=== PATIENT | female | born 1955 | race American Indian/Alaskan Native ===

== ENCOUNTER 2021-06-10 08:34 | Inpatient (IN) | payer MEDICAID ==
--- NOTE | 2021-06-10 12:41 | Emergency Department Report ---
HPI - General Chief Complaint: Medical Clearance Time Seen by Provider: 06/10/21 12:15 - HPI HPI: 65-year-old female with history of hypertension and alcohol use disorder is brought in by EMS complaining of difficulty walking due to low back pain and left hip pain. According to the EMS report, the patient was also found to be urinating and defecating on herself. The patient states that she drinks approximately 2 to 3 pints of liquor every day. She says that 1 week ago she lost her balance and fell onto her left side. She denies hitting her head or losing consciousness. However, after this fall she reports that she has had pain in her low back as well as left hip which has caused her difficulty in ambulating. She is unable to explain her incontinence. Other than the pain, she denies any associated headache, vision change, neck pain, chest pain, shortness of breath, cough, abdominal pain, nausea/vomiting, dysuria, focal weakness, sensory change, or any other complaints ED Past Medical Hx - Past Medical History Previous Medical History?: Yes Hx Hypertension: Yes Additional medical history: Alcohol use disorder ED Review of Systems ROS: Stated complaint: STATES CANT WALK Other details as noted in HPI Comment: All other systems reviewed and negative Constitutional: denies: chills, fever Eyes: denies: eye pain, vision change ENT: denies: throat pain, congestion Respiratory: denies: cough, shortness of breath Cardiovascular: denies: chest pain, palpitations Gastrointestinal: diarrhea. denies: abdominal pain, nausea, vomiting Genitourinary: denies: dysuria, frequency Musculoskeletal: back pain. denies: joint swelling Skin: denies: rash, lesions Neurological: denies: headache, weakness, numbness Hematological/Lymphatic: denies: easy bleeding Physical Exam - Physical Exam Vital Signs: Vital Signs 06/10/21 08:38 Temperature 98 F Pulse Rate 102 H Respiratory 18 Rate Blood Pressure 145/106 [Left] O2 Sat by Pulse 98 Oximetry Physical Exam: GENERAL: Well-developed female in no acute distress. Disheveled and unkempt HEAD: Normocephalic. No obvious signs of trauma. ENT: Dry mucous membranes. EYES: Extraocular movements are intact. Pupils are equal round and reactive to light bilaterally NECK: Supple. Full ROM is intact. Trachea is midline. LUNGS: Nonlabored breathing. Equal chest rise bilaterally. Clear to auscultation bilaterally. CARDIOVASCULAR: Tachycardic but with regular rhythm. No murmurs or rubs. VASCULAR: Cap refill < 2 seconds ABDOMEN: Abdomen is soft and nondistended. There is no significant tenderness, guarding or rebound. RECTAL: Nurse present as environmental field office manager. Decreased rectal tone with brown appearing stool present in the rectal vault which is Hemoccult positive SKIN: Skin is warm and dry NEURO: Patient is awake, alert, and oriented. shell trim operator II-XII grossly intact. No focal deficits. Normal motor and sensory exam throughout. Normal speech. MUSCULOSKELETAL: No obvious deformities. There is tenderness over the left lateral hip. Normal ROM throughout. BACK/SPINE: No midline tenderness or step-offs of the C/T spine. There is midline tenderness over the L-spine. No costovertebral angle tenderness. ED Course Vital Signs 06/10/21 08:38 Temperature 98 F Pulse Rate 102 H Respiratory 18 Rate Blood Pressure 145/106 [Left] O2 Sat by Pulse 98 Oximetry ED Medical Decision Making - Lab Data Result diagrams: 06/11/21 01:19 06/11/21 01:19 Lab Results 06/10/21 06/10/21 06/10/21 Range/Units 12:42 12:42 12:42 WBC 7.8 (4.5-11.0) K/mm3 RBC 2.66 L (3.65-5.03) M/mm3 Hgb 8.6 L (10.1-14.3) gm/dl Hct 26.9 L (30.3-42.9) % MCV 101 H (79-97) fl MCH 33 H (28-32) pg MCHC 32 (30-34) % RDW 18.1 H (13.2-15.2) % Plt Count 294 (140-440) K/mm3 Lymph % (Auto) 16.4 (13.4-35.0) % [place] % (Auto) 3.6 (0.0-7.3) % Eos % (Auto) 0.6 (0.0-4.3) % Baso % (Auto) 0.8 (0.0-1.8) % Lymph # (Auto) 1.3 (1.2-5.4) K/mm3 [place] # (Auto) 0.3 (0.0-0.8) K/mm3 Eos # (Auto) 0.0 (0.0-0.4) K/mm3 Baso # (Auto) 0.1 (0.0-0.1) K/mm3 Seg Neutrophils % 78.6 H (40.0-70.0) % Seg Neutrophils # 6.1 (1.8-7.7) K/mm3 PT 14.3 (12.2-14.9) Sec. INR 1.00 (0.87-1.13) APTT 36.7 H (24.2-36.6) Sec. Sodium 140 (137-145) mmol/L Potassium 2.9 L* (3.6-5.0) mmol/L Chloride 103.7 (98-107) mmol/L Carbon Dioxide 18 L (22-30) mmol/L Anion Gap 21 mmol/L BUN 15 (7-17) mg/dL Creatinine 2.2 H (0.6-1.2) mg/dL Estimated GFR 27 ml/min BUN/Creatinine Ratio 7 % Glucose 106 H (65-100) mg/dL Calcium 8.6 (8.4-10.2) mg/dL Phosphorus (2.5-4.5) mg/dL Magnesium (1.7-2.3) mg/dL Total Bilirubin (0.1-1.2) mg/dL Direct Bilirubin (0-0.2) mg/dL Indirect Bilirubin mg/dL AST (5-40) units/L ALT (7-56) units/L Alkaline Phosphatase (35-129) units/L Total Protein (6.3-8.2) g/dL Albumin (3.9-5) g/dL Albumin/Globulin Ratio % Lipase (13-60) units/L Plasma/Serum Alcohol (0-0.07) % 06/10/21 06/10/21 06/10/21 Range/Units 12:42 14:15 14:15 WBC (4.5-11.0) K/mm3 RBC (3.65-5.03) M/mm3 Hgb (10.1-14.3) gm/dl Hct (30.3-42.9) % MCV (79-97) fl MCH (28-32) pg MCHC (30-34) % RDW (13.2-15.2) % Plt Count (140-440) K/mm3 Lymph % (Auto) (13.4-35.0) % [place] % (Auto) (0.0-7.3) % Eos % (Auto) (0.0-4.3) % Baso % (Auto) (0.0-1.8) % Lymph # (Auto) (1.2-5.4) K/mm3 [place] # (Auto) (0.0-0.8) K/mm3 Eos # (Auto) (0.0-0.4) K/mm3 Baso # (Auto) (0.0-0.1) K/mm3 Seg Neutrophils % (40.0-70.0) % Seg Neutrophils # (1.8-7.7) K/mm3 PT (12.2-14.9) Sec. INR (0.87-1.13) APTT (24.2-36.6) Sec. Sodium (137-145) mmol/L Potassium (3.6-5.0) mmol/L Chloride (98-107) mmol/L Carbon Dioxide (22-30) mmol/L Anion Gap mmol/L BUN (7-17) mg/dL Creatinine (0.6-1.2) mg/dL Estimated GFR ml/min BUN/Creatinine Ratio % Glucose (65-100) mg/dL Calcium (8.4-10.2) mg/dL Phosphorus (2.5-4.5) mg/dL Magnesium 1.00 L (1.7-2.3) mg/dL Total Bilirubin (0.1-1.2) mg/dL Direct Bilirubin (0-0.2) mg/dL Indirect Bilirubin mg/dL AST (5-40) units/L ALT (7-56) units/L Alkaline Phosphatase (35-129) units/L Total Protein (6.3-8.2) g/dL Albumin (3.9-5) g/dL Albumin/Globulin Ratio % Lipase 24 (13-60) units/L Plasma/Serum Alcohol 0.17 H (0-0.07) % 06/10/21 Range/Units 15:12 WBC (4.5-11.0) K/mm3 RBC (3.65-5.03) M/mm3 Hgb (10.1-14.3) gm/dl Hct (30.3-42.9) % MCV (79-97) fl MCH (28-32) pg MCHC (30-34) % RDW (13.2-15.2) % Plt Count (140-440) K/mm3 Lymph % (Auto) (13.4-35.0) % [place] % (Auto) (0.0-7.3) % Eos % (Auto) (0.0-4.3) % Baso % (Auto) (0.0-1.8) % Lymph # (Auto) (1.2-5.4) K/mm3 [place] # (Auto) (0.0-0.8) K/mm3 Eos # (Auto) (0.0-0.4) K/mm3 Baso # (Auto) (0.0-0.1) K/mm3 Seg Neutrophils % (40.0-70.0) % Seg Neutrophils # (1.8-7.7) K/mm3 PT (12.2-14.9) Sec. INR (0.87-1.13) APTT (24.2-36.6) Sec. Sodium (137-145) mmol/L Potassium (3.6-5.0) mmol/L Chloride (98-107) mmol/L Carbon Dioxide (22-30) mmol/L Anion Gap mmol/L BUN (7-17) mg/dL Creatinine (0.6-1.2) mg/dL Estimated GFR ml/min BUN/Creatinine Ratio % Glucose (65-100) mg/dL Calcium (8.4-10.2) mg/dL Phosphorus 2.10 L (2.5-4.5) mg/dL Magnesium (1.7-2.3) mg/dL Total Bilirubin 0.50 (0.1-1.2) mg/dL Direct Bilirubin < 0.2 (0-0.2) mg/dL Indirect Bilirubin 0.3 mg/dL AST 35 (5-40) units/L ALT 13 (7-56) units/L Alkaline Phosphatase 219 H (35-129) units/L Total Protein 6.5 (6.3-8.2) g/dL Albumin 3.1 L (3.9-5) g/dL Albumin/Globulin Ratio 0.9 % Lipase (13-60) units/L Plasma/Serum Alcohol (0-0.07) % - Radiology Data Radiology results: report reviewed - Medical Decision Making 65-year-old female with chronic alcohol use brought in by EMS after she was found defecating and urinating on herself with complaint of low back pain and left hip pain. Patient states she had a trip and fall last week. She is afebrile and with normal vital signs other than elevated blood pressure and heart rate in the 100s. Physical examination reveals a disheveled female with dry mucous membranes. There is tenderness over the left hip. There is also mid spinal tenderness in the lumbar spine. However, there is normal strength and sensation throughout and no focal neurologic deficits. Rectal exam was performed with nurse present as environmental field office manager and reveals decreased rectal tone. We will perform very broad work-up with a full set of labs as well as plain film x-rays of the pelvis and left hip as well as CT of the lumbar spine to assess for evidence of fracture/dislocation, or other abnormality to suggest spinal cord injury or cauda equina syndrome. Will give banana bag Labs reveal several abnormalities including anemia with hemoglobin of 8.6, creatinine of 2.2, and potassium of 2.9. I have ordered potassium repletion. I have also ordered a magnesium level and EKG. I went and spoke to the patient who reveals that she has had dark tarry stools for the past week. Stool from rectal exam is Hemoccult positive. I have therefore ordered 80 mg of IV Protonix Magnesium level is found to be 1.0. I have ordered repletion. Chest x-ray reveals diffuse interstitial lung disease, likely chronic. On repeat assessment, patient has become more agitated and anxious. I suspect that the patient is beginning to have symptoms of alcohol withdrawal. CIWA protocol has been ordered. CT of the lumbar spine reveals several findings related to patient's prior surgery for L1 burst fracture. No acute abnormalities are seen however. At 5:19 PM I spoke with Dr. Cuong Davis of neurosurgery regarding the patient's case. He reviewed the CT and agrees there is nothing acute CT of the abdomen pelvis reveals fragmentation of the left pubic ramus which may represent subacute fracture as well as insufficiency fractures involving both iliac bones. At [address] Mendoza, the on-call hospitalist regarding the case and he agrees to admit the patient and will assume care. Critical Care Time: Yes Critical care time in (mins) excluding proc time.: 60 Critical care attestation.: If time is entered above; I have spent that time in minutes in the direct care of this critically ill patient, excluding procedure time. Critical care time was spent in the evaluation/assessment, work-up, and management of encephalopathy with alcohol intoxication, GI bleed with anemia, kidney dysfunction with hypokalemia requiring oral and IV repletion, alcohol withdrawal requiring initiation of CIWA protocol, as well as advanced imaging and consultation with specialist and frequent reevaluation and reassessment ED Disposition Clinical Impression: GI bleed, Anemia, Hypokalemia, Hypomagnesemia, Alcohol dependence, Sciatica, NELLY (acute kidney injury), Hypophosphatemia Fracture of left inferior pubic ramus Qualifiers: Encounter type: initial encounter Alcohol withdrawal Qualifiers: Complication of substance-induced condition: with delirium Qualified Code(s): F10.231 - Alcohol dependence with withdrawal delirium Low back pain Qualifiers: Chronicity: chronic Sciatica presence: without sciatica Disposition: 09 ADMITTED INPATIENT Is pt being admited?: Yes
[2021-06-10] MEDS ORDERED: THIAMINE 100 MG, FOLIC ACID 1 MG, MULTIPLE VITAMIN INJ, ADULT 10 ML in SODIUM CHLORIDE ... IV ONE (13:00)
[2021-06-10 13:22] LABS: Basophils # (Auto) 0.1 K/mm3 (0.0-0.1); Basophils % (Auto) 0.8 % (0.0-1.8); Eosinophils % (Auto) 0.6 % (0.0-4.3); Hematocrit 26.9 % (30.3-42.9); Hemoglobin 8.6 gm/dl (10.1-14.3); Lymphocytes # (Auto) 1.3 K/mm3 (1.2-5.4); Lymphocytes % (Auto) 16.4 % (13.4-35.0); Mean Corpuscular HGB Conc 32 % (30-34); Mean Corpuscular Volume 101 fl (79-97); Monocytes # (Auto) 0.3 K/mm3 (0.0-0.8); Monocytes % (Auto) 3.6 % (0.0-7.3); Platelet Count 294 K/mm3 (140-440); Red Blood Count 2.66 M/mm3 (3.65-5.03); Red Cell Distribution Width 18.1 % (13.2-15.2)
--- NOTE | 2021-06-10 13:29 | XRay Report ---
LEFT HIP 2 VIEWS INDICATION / CLINICAL INFORMATION: Fall with left hip pain. COMPARISON: None available. FINDINGS: BONES / JOINT(S): The bones are diffusely demineralized. I see no evidence of acute fracture or sublu xation. There are surgical changes in the lower lumbar spine. SOFT TISSUES: No significant abnormality. ADDITIONAL FINDINGS: None. Signer Name: Manny Lange MD Signed: 06/10/2021 1:25 PM Workstation Name: [id number]
[2021-06-10 13:31] LABS: Partial Thromboplastin Time 36.7 Sec. (24.2-36.6)
[2021-06-10 13:39] LABS: Calcium 8.6 mg/dL (8.4-10.2)
[2021-06-10] MEDS ORDERED: POTASSIUM CHLORIDE ER 20 MEQ TAB PO ONE (14:04)
[2021-06-10] MEDS ORDERED: PANTOPRAZOLE 40 MG INJ IV ONE (14:56)
[2021-06-10] MEDS ORDERED: MAGNESIUM SULFATE 2 GM/50 ML BAG IV ONE (15:37)
[2021-06-10] MEDS ORDERED: LORazepam 2 MG/ML VIAL IV ONE (15:48)
[2021-06-10 16:13] LABS: Alanine Aminotransferase 13 units/L (7-56); Albumin 3.1 g/dL (3.9-5)
[2021-06-10 16:17] LABS: Bilirubin,Direct < 0.2 mg/dL (0-0.2)
--- NOTE | 2021-06-10 16:27 | XRay Report ---
CHEST 2 VIEWS INDICATION / CLINICAL INFORMATION: Medical clearance. COMPARISON: None available. FINDINGS: SUPPORT DEVICES: None. HEART / MEDIASTINUM: The heart size is borderline with a left ventricular configuration. Pulmonary va sculature is normal. The aorta is tortuous without aneurysm. LUNGS / PLEURA: There is mild diffuse interstitial lung disease, more prominent in the lower lung zon es. No pneumothorax. ADDITIONAL FINDINGS: There are surgical changes involving the thoracolumbar spine and lower cervical spine. IMPRESSION: Mild diffuse interstitial lung disease is basilar predominant and likely chronic. Signer Name: Manny Lange MD Signed: 06/10/2021 4:22 PM Workstation Name: [id number]
--- NOTE | 2021-06-10 16:56 | Cat Scan Report ---
CT LUMBAR SPINE WITHOUT CONTRAST INDICATION: mid-line tenderness and incontinence. TECHNIQUE: Axial CT images of the lumbar spine were obtained. Sagittal and coronal reformatted images were produ talha. All CT scans at this location are performed using CT dose reduction for ALARA by means of automa zulma exposure control. COMPARISON: None available. FINDINGS: POST-SURGICAL CHANGES: Patient is status post surgical treatment for L1 vertebral body burst fracture . Vertebrectomy has been performed. Interbody strut graft is present. There has been posterior latera l fusion bone placed without evidence of solid bone union at the time of this study. Patient is statu s post segmental instrumentation at T11, T12, L2 and L3 levels. Patient is status post laminectomy at L1. Spinal canal is adequate in size in the postoperative region. ALIGNMENT: Grade 1 spondylolisthesis is noted at the L5-S1 level. Alignment is otherwise fairly well- maintained. VERTEBRAE: Evidence of surgically treated burst fracture at L1. Compression deformity at superior end plate T11. Vertebral morphology is otherwise fairly well-maintained. INTERVERTEBRAL DISCS: Loss of disc height and disc vacuum phenomena are noted at T10-T11 and L5-S1 le vels. The T12-L1 and L1-L2 discs are largely surgically absent. [id number] ANALYSIS: T11-T12: Disc height is normally maintained. Patient is status post segmental instrumentation support ing fracture treatment. Pedicle screws are in satisfactory position. T12-L1: The intervertebral disc at this surgically absent. Interbody strut graft is in satisfactory p osition. There is retropulsion of posterior cortex at the L1 superior endplate. Laminectomy spine per formed at this level and there is no indication of central canal stenosis. L1-2: Postoperative changes. Status post laminectomy at L1. Central spinal canal and neuroforamina ar e adequately maintained. L2-3: No specific herniation. Treatment. Pedicle screws are in satisfactory position. A radiolucent h alos surrounds the L3 pedicle screws bilaterally indicating loosening. Central spinal canal and neuro foramina are generous in size. L3-4: No significant disc abnormality, spinal canal stenosis, or neural foraminal stenosis. L4-5: Bilateral facet arthropathy is noted. There is thickening of ligamentum flavum. Broad-based dis c bulge is observed. Mild central canal stenosis is suspected at this level. The L4 nerve root neurof oramina are adequately maintained. L5-S1: Loss of disc height and disc vacuum phenomena are noted. Bilateral facet arthritic changes are observed. There is a mild grade 1 spondylolisthesis. Central spinal canal remains adequate in size. Mild left-sided and moderate right-sided neuroforaminal narrowing is observed the L5 nerve root level . Sacrum: No intrinsic sacral abnormalities are identified. Sacroiliac joints have an unremarkable appe arance. PARASPINAL SOFT TISSUES: Calcified atherosclerotic plaque is seen along the course of the abdominal a tegan and in the common iliac arteries. IMPRESSION: 1. Status post surgical treatment for L1 burst fracture as described in detail above. 2. Radiolucent halos surrounding the L3 vertebral body screws indicating loosening 3. Mild central canal stenosis L4-5. 4. Right worse than left neuroforaminal narrowing L5-S1. Signer Name: Ambrose Pierce MD Signed: 06/10/2021 4:52 PM Workstation Name: [id number]
--- NOTE | 2021-06-10 17:05 | Cat Scan Report ---
CT OF THE ABDOMEN AND PELVIS WITHOUT CONTRAST INDICATION / CLINICAL INFORMATION: Abdominal pain. TECHNIQUE: All CT scans at this location are performed using CT dose reduction for ALARA by means of automated exposure control. COMPARISON: None available. FINDINGS: ABDOMEN: There is a moderate midline epigastric fat-containing ventral hernia. The hernia sac measure s approximately 4.3 cm. The mouth of the hernia measures 1.3 cm. There is slight increased density of the fat in the hernia sac. The liver, spleen, gallbladder, bile ducts, pancreas, adrenal glands and bowel demonstrate no signifi cant abnormality. There are moderate atherosclerotic calcifications involving aorta. There are right renal vascular calcifications. There is a 2 mm nonobstructive calculus in the upper pole left kidney. No adenopathy is seen. The lung bases are clear. PELVIS: The distal ureters and urinary bladder are normal. The uterus and ovaries are not identified. There is no evidence of diverticulitis or appendicitis. There is a tiny fat-containing left inguinal hernia without complication. There are surgical changes involving the thoracolumbar spine transfixing an old compression fracture at the L1 level. There is fragmentation of the left pubic body with mild associated soft tissue fulln ess. There also appear to be insufficiency fractures involving both iliac wings anteriorly adjacent t o the SI joints IMPRESSION: 1. Small midline fat-containing epigastric ventral hernia. Slight increased density of the fat in the hernia sac may be related to acute or chronic inflammation. 2. Small nonobstructive left renal calculus. 3. Fragmentation of the left pubic ramus may be related to subacute fracture. Clinical attention is d irected to this site. There are insufficiency fractures involving both iliac bones near the SI joints . Signer Name: Manny Lange MD Signed: 06/10/2021 5:00 PM Workstation Name: [id number]
--- NOTE | 2021-06-11 00:21 | History and Physical Report ---
History of Present Illness Date of examination: 06/10/21 Date of admission: 06/10/21 17:26 Chief complaint: Altered sensorium for 1 day Left knee pain and left pelvic pain History of present illness: 65-year-old female with history of hypertension and alcohol use disorder is brought in by EMS complaining of difficulty walking due to low back pain and left hip pain. According to the EMS report, the patient was also found to be urinating and defecating on herself. The patient states that she drinks approximately 2 to 3 pints of liquor every day. She says that 1 week ago she lost her balance and fell onto her left side. She denies hitting her head or losing consciousness. However, after this fall she reports that she has had pain in her low back as well as left hip which has caused her difficulty in ambulating. She is unable to explain her incontinence. Other than the pain, she denies any associated headache, vision change, neck pain, chest pain, shortness of breath, cough, abdominal pain, nausea/vomiting, dysuria, focal weakness, sensory change, or any other complaints - Past Medical History Previous Medical History?: Yes --Hypertension: Yes Additional medical history: Alcohol use disorder --Past surgical history lumbar spine surgery --social history --alcohol dependence -- family history -- hypertension Review of Systems ROS: Constitutional no weight loss or weight gain no fever or chills HEENT no sore throat no post nasal drip no diplopia Neck no neck stiffness no lymph gland enlargement Chest and lungs no shortness of breath cough or wheezing CVS no chest pain no diaphoresis no palpitationGI no nausea no vomiting no diarrhGenitourinary system no dysuria no flank pain Musculoskeletal system left hip pain and pelvic pain PIG [employer]ER altered sensorium Skin no rash no itching Psychiatric no depression no homicidal or suicidal tendencies Hematologic no lymphedema or bruising Endocrine no polydipsia no polyuria no cold intolerance no heat intolerance Medications and Allergies Allergies Allergy/AdvReac Type Severity Reaction Status Date / Time No Known Allergies Allergy Verified 06/11/21 01:40 Active Meds: Active Medications Lorazepam (Lorazepam 2 Mg/Ml Vial) 2 mg IV Q1HR PRN PRN Reason: [facility]-Ct 815 Exam - Constitutional Vitals: Temp Pulse Resp BP Pulse Ox 98.9 F 108 H 20 160/107 95 06/10/21 20:17 06/10/21 20:17 06/10/21 20:17 06/10/21 20:17 06/10/21 20:17 General appearance: Present: no acute distress, well-nourished - EENT Eyes: Present: PERRL ENT: hearing intact, clear oral mucosa - Neck Neck: Present: supple, normal ROM - Respiratory Respiratory effort: normal Respiratory: bilateral: CTA - Cardiovascular Heart rate: 78 Rhythm: regular Heart Sounds: Present: S1 & S2. Absent: rub, click - Extremities Extremities: no ischemia, pulses intact, pulses symmetrical, No edema Peripheral Pulses: within normal limits - Abdominal General gastrointestinal: Present: soft, non-tender, non-distended, normal bowel sounds Female genitourinary: Present: normal - Integumentary Integumentary: Present: clear, warm, dry - Musculoskeletal Musculoskeletal: gait normal, strength equal bilaterally - Psychiatric Psychiatric: appropriate mood/affect, intact judgment & insight - Neurologic Neurologic: CNII-XII intact, moves all extremities Results - Labs CBC & Chem 7: 06/11/21 01:19 06/11/21 01:19 Labs: Laboratory Last Values WBC 7.8 K/mm3 (4.5-11.0) 06/10/21 12:42 RBC 2.66 M/mm3 (3.65-5.03) L 06/10/21 12:42 Hgb 8.6 gm/dl (10.1-14.3) L 06/10/21 12:42 Hct 26.9 % (30.3-42.9) L 06/10/21 12:42 MCV 101 fl (79-97) H 06/10/21 12:42 MCH 33 pg (28-32) H 06/10/21 12:42 MCHC 32 % (30-34) 06/10/21 12:42 RDW 18.1 % (13.2-15.2) H 06/10/21 12:42 Plt Count 294 K/mm3 (140-440) 06/10/21 12:42 Lymph % (Auto) 16.4 % (13.4-35.0) 06/10/21 12:42 [place] % (Auto) 3.6 % (0.0-7.3) 06/10/21 12:42 Eos % (Auto) 0.6 % (0.0-4.3) 06/10/21 12:42 Baso % (Auto) 0.8 % (0.0-1.8) 06/10/21 12:42 Lymph # (Auto) 1.3 K/mm3 (1.2-5.4) 06/10/21 12:42 [place] # (Auto) 0.3 K/mm3 (0.0-0.8) 06/10/21 12:42 Eos # (Auto) 0.0 K/mm3 (0.0-0.4) 06/10/21 12:42 Baso # (Auto) 0.1 K/mm3 (0.0-0.1) 06/10/21 12:42 Seg Neutrophils % 78.6 % (40.0-70.0) H 06/10/21 12:42 Seg Neutrophils # 6.1 K/mm3 (1.8-7.7) 06/10/21 12:42 PT 14.3 Sec. (12.2-14.9) 06/10/21 12:42 INR 1.00 (0.87-1.13) 06/10/21 12:42 APTT 36.7 Sec. (24.2-36.6) H 06/10/21 12:42 Sodium 140 mmol/L (137-145) 06/10/21 12:42 Potassium 2.9 mmol/L (3.6-5.0) L* 06/10/21 12:42 Chloride 103.7 mmol/L (98-107) 06/10/21 12:42 Carbon Dioxide 18 mmol/L (22-30) L 06/10/21 12:42 Anion Gap 21 mmol/L 06/10/21 12:42 BUN 15 mg/dL (7-17) 06/10/21 12:42 Creatinine 2.2 mg/dL (0.6-1.2) H 06/10/21 12:42 Estimated GFR 27 ml/min 06/10/21 12:42 BUN/Creatinine Ratio 7 % 06/10/21 12:42 Glucose 106 mg/dL (65-100) H 06/10/21 12:42 Calcium 8.6 mg/dL (8.4-10.2) 06/10/21 12:42 Phosphorus 2.10 mg/dL (2.5-4.5) L 06/10/21 15:12 Magnesium 1.00 mg/dL (1.7-2.3) L 06/10/21 14:15 Total Bilirubin 0.50 mg/dL (0.1-1.2) 06/10/21 15:12 Direct Bilirubin < 0.2 mg/dL (0-0.2) 06/10/21 15:12 Indirect Bilirubin 0.3 mg/dL 06/10/21 15:12 AST 35 units/L (5-40) 06/10/21 15:12 ALT 13 units/L (7-56) 06/10/21 15:12 Alkaline Phosphatase 219 units/L (35-129) H 06/10/21 15:12 Total Protein 6.5 g/dL (6.3-8.2) 06/10/21 15:12 Albumin 3.1 g/dL (3.9-5) L 06/10/21 15:12 Albumin/Globulin Ratio 0.9 % 06/10/21 15:12 Lipase 24 units/L (13-60) 06/10/21 12:42 Plasma/Serum Alcohol 0.17 % (0-0.07) H 06/10/21 14:15 Microbiology: Microbiology 06/10/21 14:51 Stool Stool Occult Blood (SEEMA) - Final Assessment and Plan Advance Directives: Yes (Full code) VTE prophylaxis?: Chemical Plan of care discussed with patient/family: Yes - Patient Problems (1) Acute encephalopathy Current Visit: Yes Status: Acute Plan to address problem: Secondary to EtOH IV fluids IV thiamine and B12 (2) Alcohol withdrawal Current Visit: Yes Status: Acute Qualifiers: Complication of substance-induced condition: with delirium Qualified Code(s): F10.231 - Alcohol dependence with withdrawal delirium Plan to address problem: On CIWA protocol (3) Fracture of left inferior pubic ramus Current Visit: Yes Status: Acute Qualifiers: Encounter type: initial encounter Plan to address problem: Possible subacute Ortho consulted (4) Hypokalemia Current Visit: Yes Status: Acute Plan to address problem: Supplemented aggressively Recheck potassium level (5) NELLY (acute kidney injury) Current Visit: Yes Status: Acute Plan to address problem: IV fluids for now Vasomotor nephropathy Dehydration secondary to alcohol intake (6) Hypomagnesemia Current Visit: Yes Status: Acute Plan to address problem: Supplemented (7) Hypophosphatemia Current Visit: Yes Status: Acute Plan to address problem: Supplemented with K-Phos (8) Acute gastritis Current Visit: Yes Status: Chronic Qualifiers: Gastritis type: alcoholic Plan to address problem: IV Protonix for now (9) Low back pain Current Visit: Yes Status: Chronic Qualifiers: Chronicity: chronic Sciatica presence: without sciatica Plan to address problem: Analgesics as needed (10) Advance care planning Current Visit: Yes Status: Acute Plan to address problem: Disease education conducted, care plan discussed, diagnosis discussed, patient is full code, patient acknowledges understanding and agrees with care plan +30 minutes (11) DVT prophylaxis Current Visit: Yes Status: Acute Plan to address problem: On anticoagulation GI prophylaxis
[2021-06-11] MEDS ORDERED: METOCLOPRAMIDE 10 MG/2 ML INJ IV PRN (00:24)
[2021-06-11] MEDS ORDERED: ONDANSETRON 4 MG/2 ML INJ IV PRN (00:24)
[2021-06-11] MEDS ORDERED: ACETAMINOPHEN 325 MG TAB PO PRN (00:24)
[2021-06-11] MEDS ORDERED: MAGNESIUM SULFATE 2 GM/50 ML BAG IV ONE ×2 (00:27→04:15)
[2021-06-11] MEDS ORDERED: SODIUM CHLORIDE 0.9% 1000 ML 1,000 ML IV SCH (00:30)
[2021-06-11] MEDS ORDERED: POTASSIUM CHLORIDE 10 MEQ 10 MEQ/100 ML BAG IV SCH (01:00)
[2021-06-11] MEDS ORDERED: FAMOTIDINE 20 MG/2 ML INJ IV SCH ×2 (01:00→11:00)
[2021-06-11 01:43] LABS: Basophils % (Auto) 0.2 % (0.0-1.8); Eosinophils % (Auto) 0.2 % (0.0-4.3); Hematocrit 24.8 % (30.3-42.9); Hemoglobin 8.1 gm/dl (10.1-14.3); Lymphocytes # (Auto) 1.4 K/mm3 (1.2-5.4); Lymphocytes % (Auto) 20.3 % (13.4-35.0); Mean Corpuscular HGB Conc 33 % (30-34); Mean Corpuscular Volume 103 fl (79-97); Monocytes # (Auto) 0.4 K/mm3 (0.0-0.8); Platelet Count 245 K/mm3 (140-440); Red Blood Count 2.41 M/mm3 (3.65-5.03); Red Cell Distribution Width 17.5 % (13.2-15.2)
[2021-06-11 01:51] LABS: Albumin 3.3 g/dL (3.9-5); Calcium 8.6 mg/dL (8.4-10.2)
[2021-06-11] MEDS: LORazepam 2 MG/ML VIAL IV PRN ×5 (03:29→18:54)
[2021-06-11] MEDS: POTASSIUM CHLORIDE 10 MEQ 10 MEQ/100 ML BAG IV SCH ×4 (04:56→14:14)
[2021-06-11] MEDS ORDERED: POTASSIUM CHLORIDE ER 20 MEQ TAB PO ONE (10:00)
[2021-06-11] MEDS ORDERED: MAGNESIUM SULFATE 3 GM in SODIUM CHLORIDE 0.9% 100 ML IV ONE (10:00)
[2021-06-11] MEDS ORDERED: POTASSIUM PHOSPHATE 40 MMOL in SODIUM CHLORIDE 0.9% 500 ML 500 ML IV ONE (10:00)
[2021-06-11] MEDS: HEPARIN 5,000 UNIT/1 ML VIAL SUB-Q SCH ×2 (11:00→21:54)
[2021-06-11] MEDS: oxyCODONE /ACETAMINOPHEN 5-325MG TAB PO PRN (11:30)
--- NOTE | 2021-06-11 13:20 | Progress Note ---
Assessment and Plan Assessment and plan: Altered sensorium for 1 day Left knee pain and left pelvic pain 65-year-old female with history of hypertension and alcohol use disorder is brought in by EMS complaining of difficulty walking due to low back pain and left hip pain. According to the EMS report, the patient was also found to be urinating and defecating on herself. The patient states that she drinks approximately 2 to 3 pints of liquor every day. She says that 1 week ago she lost her balance and fell onto her left side. She denies hitting her head or losing consciousness. However, after this fall she reports that she has had bruna n in her low back as well as left hip which has caused her difficulty in ambulating. She is unable to explain her incontinence. Other than the pain, she denies any associated headache, vision change, neck pain, chest pain, shortness of breath, cough, abdominal pain, nausea/vomiting, dysuria, focal weakness, sensory change, or any other complaints 06/11: Patient remains on with AMS, and tremulous, undergoing withdrawal. Will continue with aggressive electrolytes Replacement. Counselling provided to the patient about need to cease tobacco and etoh use. Anticipate discharge tomorrow. Will also add Psych consult FOR Patients professed Depression. (1) Acute Metabolic encephalopathy Current Visit: Yes Status: Acute Plan to address problem: Secondary to EtOH IV fluids IV thiamine and B12 (2) Alcohol withdrawal Current Visit: Yes Status: Acute Qualifiers: Complication of substance-induced condition: with delirium Qualified Code(s): F10.231 - Alcohol dependence with withdrawal delirium Plan to address problem: On CIWA protocol (3) Fracture of left inferior pubic ramus Current Visit: Yes Status: Acute Qualifiers: Encounter type: initial encounter Plan to address problem: Possible subacute Ortho consulted (4) Hypokalemia Current Visit: Yes Status: Acute Plan to address problem: Supplemented aggressively Recheck potassium level (5) NELLY (acute kidney injury) Current Visit: Yes Status: Acute Plan to address problem: IV fluids for now Vasomotor nephropathy Dehydration secondary to alcohol intake (6) Hypomagnesemia Current Visit: Yes Status: Acute Plan to address problem: Supplemented (7) Hypophosphatemia Current Visit: Yes Status: Acute Plan to address problem: Supplemented with K-Phos (8) Acute gastritis Current Visit: Yes Status: Chronic Qualifiers: Gastritis type: alcoholic Plan to address problem: IV Protonix for now (9) Low back pain Current Visit: Yes Status: Chronic Qualifiers: Chronicity: chronic Sciatica presence: without sciatica Plan to address problem: Analgesics as needed (10) Advance care planning Current Visit: Yes Status: Acute Plan to address problem: Disease education conducted, care plan discussed, diagnosis discussed, patient is full code, patient acknowledges understanding and agrees with care plan +30 minutes (11) DVT prophylaxis Current Visit: Yes Status: Acute Plan to address problem: On anticoagulation GI prophylaxis Hospitalist Physical - Physical exam Narrative exam: General appearance: Present: no acute distress, well-nourished, Tremulous - EENT Eyes: Present: PERRL ENT: hearing intact, clear oral mucosa - Neck Neck: Present: supple, normal ROM - Respiratory Respiratory effort: normal Respiratory: bilateral: CTA - Cardiovascular Heart rate: 78 Rhythm: regular Heart Sounds: Present: S1 & S2. Absent: rub, click - Extremities Extremities: no ischemia, pulses intact, pulses symmetrical, No edema Peripheral Pulses: within normal limits - Abdominal General gastrointestinal: Present: soft, non-tender, non-distended, normal bowel sounds Female genitourinary: Present: normal - Integumentary Integumentary: Present: clear, warm, dry - Musculoskeletal Musculoskeletal: gait normal, strength equal bilaterally - Psychiatric Psychiatric: appropriate mood/affect, intact judgment & insight - Neurologic Neurologic: CNII-XII intact, moves all extremities - Constitutional Vitals: Temp Pulse Resp BP Pulse Ox 98.7 F 107 H 18 170/88 98 06/11/21 08:36 06/11/21 08:36 06/11/21 08:36 06/11/21 08:36 06/11/21 09:03 General appearance: Present: no acute distress, well-nourished Results - Labs CBC & Chem 7: 06/11/21 01:19 06/11/21 01:19 Labs: Laboratory Last Values WBC 7.1 K/mm3 (4.5-11.0) 06/11/21 01:19 RBC 2.41 M/mm3 (3.65-5.03) L 06/11/21 01:19 Hgb 8.1 gm/dl (10.1-14.3) L 06/11/21 01:19 Hct 24.8 % (30.3-42.9) L 06/11/21 01:19 MCV 103 fl (79-97) H 06/11/21 01:19 MCH 34 pg (28-32) H 06/11/21 01:19 MCHC 33 % (30-34) 06/11/21 01:19 RDW 17.5 % (13.2-15.2) H 06/11/21 01:19 Plt Count 245 K/mm3 (140-440) 06/11/21 01:19 Lymph % (Auto) 20.3 % (13.4-35.0) 06/11/21 01:19 [place] % (Auto) 6.0 % (0.0-7.3) 06/11/21 01:19 Eos % (Auto) 0.2 % (0.0-4.3) 06/11/21 01:19 Baso % (Auto) 0.2 % (0.0-1.8) 06/11/21 01:19 Lymph # (Auto) 1.4 K/mm3 (1.2-5.4) 06/11/21 01:19 [place] # (Auto) 0.4 K/mm3 (0.0-0.8) 06/11/21 01:19 Eos # (Auto) 0.0 K/mm3 (0.0-0.4) 06/11/21 01:19 Baso # (Auto) 0.0 K/mm3 (0.0-0.1) 06/11/21 01:19 Seg Neutrophils % 73.3 % (40.0-70.0) H 06/11/21 01:19 Seg Neutrophils # 5.2 K/mm3 (1.8-7.7) 06/11/21 01:19 PT 14.3 Sec. (12.2-14.9) 06/10/21 12:42 INR 1.00 (0.87-1.13) 06/10/21 12:42 APTT 36.7 Sec. (24.2-36.6) H 06/10/21 12:42 Sodium 138 mmol/L (137-145) 06/11/21 01:19 Potassium 3.2 mmol/L (3.6-5.0) L 06/11/21 01:19 Chloride 102.2 mmol/L (98-107) 06/11/21 01:19 Carbon Dioxide 20 mmol/L (22-30) L 06/11/21 01:19 Anion Gap 19 mmol/L 06/11/21 01:19 BUN 16 mg/dL (7-17) 06/11/21 01:19 Creatinine 2.0 mg/dL (0.6-1.2) H 06/11/21 01:19 Estimated GFR 30 ml/min 06/11/21 01:19 BUN/Creatinine Ratio 8 % 06/11/21 01:19 Glucose 86 mg/dL (65-100) 06/11/21 01:19 Hemoglobin A1c 4.2 % (4-6) 06/11/21 01:19 Calcium 8.6 mg/dL (8.4-10.2) 06/11/21 01:19 Phosphorus 3.00 mg/dL (2.5-4.5) D 06/11/21 01:19 Magnesium 0.80 mg/dL (1.7-2.3) L* 06/11/21 01:19 Total Bilirubin 0.90 mg/dL (0.1-1.2) 06/11/21 01:19 Direct Bilirubin < 0.2 mg/dL (0-0.2) 06/10/21 15:12 Indirect Bilirubin 0.3 mg/dL 06/10/21 15:12 AST 32 units/L (5-40) 06/11/21 01:19 ALT 12 units/L (7-56) 06/11/21 01:19 Alkaline Phosphatase 214 units/L (35-129) H 06/11/21 01:19 Ammonia 32.0 umol/L (25-60) 06/11/21 01:19 Total Protein 6.6 g/dL (6.3-8.2) 06/11/21 01:19 Albumin 3.3 g/dL (3.9-5) L 06/11/21 01:19 Albumin/Globulin Ratio 1.0 % 06/11/21 01:19 Amylase 94 units/L (27-131) 06/11/21 01:19 Lipase 24 units/L (13-60) 06/10/21 12:42 Plasma/Serum Alcohol 0.17 % (0-0.07) H 06/10/21 14:15 Microbiology: Microbiology 06/10/21 14:51 Stool Stool Occult Blood (SEEMA) - Final Gallagher/IV: Voiding Method Toilet Active Medications - Current Medications Current Medications: Generic Name Dose Route Start Last Admin Trade Name Freq PRN Reason Stop Dose Admin Acetaminophen 650 mg 06/11/21 00:24 Acetaminophen 325 Mg Tab PO Q4H PRN Pain MILD(1-3)/Fever >100.5/MOSCOSO Famotidine 10 mg 06/11/21 11:00 Famotidine 20 Mg/2 Ml Inj IV BID [facility] Heparin Sodium (Porcine) 5,000 unit 06/11/21 00:30 Heparin 5,000 Unit/1 Ml Vial SUB-Q Q12HR JUAN DAVID Hydromorphone HCl 0.5 mg 06/11/21 00:24 Hydromorphone 1 Mg/1 Ml Inj IV Q3H PRN Pain , Severe (7-10) Sodium Chloride 1,000 mls @ 75 mls/hr 06/11/21 00:30 06/11/21 04:40 Nacl 0.9% 1000 Ml IV 75 mls/hr DIRECT JUAN DAVID Administration Potassium Phosphate 40 mmol/ 513.3333 mls @ 83 mls/hr 06/11/21 10:00 Sodium Chloride IV 06/11/21 16:11 ONCE ONE Potassium Chloride 10 meq in 100 mls @ 100 mls/hr 06/11/21 11:00 06/11/21 11:26 Kcl 10meq/100ml IV 06/11/21 14:59 100 mls/hr Q1H JUAN DAVID Administration Lorazepam 2 mg 06/10/21 15:03 06/11/21 11:10 Lorazepam 2 Mg/Ml Vial IV 2 mg Q1HR PRN Administration Cody 8-15 Metoclopramide HCl 5 mg 06/11/21 00:24 Metoclopramide 10 Mg/2 Ml Inj IV Q6H PRN Nausea And Vomiting Metoprolol Tartrate 25 mg 06/11/21 22:00 Metoprolol Tartrate 25 Mg Tab PO BID [facility] Ondansetron HCl 4 mg 06/11/21 00:24 06/11/21 03:29 Ondansetron 4 Mg/2 Ml Inj IV 4 mg Q8H PRN Administration Nausea And Vomiting Oxycodone/Acetaminophen 1 tab 06/11/21 00:24 06/11/21 11:30 Oxycodone /Acetaminophen 5-325mg Tab PO 1 tab Q6H PRN Administration Pain, Moderate (4-6) Sodium Chloride 10 ml 06/11/21 10:00 Sodium Chloride 0.9% 10 Ml Flush Syringe IV BID JUAN DAVID Sodium Chloride 10 ml 06/11/21 00:24 Sodium Chloride 0.9% 10 Ml Flush Syringe IV PRN PRN LINE FLUSH
[2021-06-11] MEDS: HYDROmorphone 1 MG/1 ML INJ IV PRN (14:11)
[2021-06-11] MEDS: METOPROLOL TARTRATE 25 MG TAB PO SCH ×2 (14:13→21:54)
[2021-06-11] MEDS: FAMOTIDINE 20 MG/2 ML INJ IV SCH ×2 (14:23→21:53)
--- NOTE | 2021-06-11 15:59 | Consultation ---
History of Present Illness - Reason for Consult Consult date: 06/11/21 acute renal failure Requesting physician: COREY PETERSEN - History of Present Illness 65-year-old lady with a history of hypertension alcohol abuse presents on account of left low back and hip pain. Patient was found by EMS to be urinating and defecating on herself. She drinks about 3 pints of liquor a day. She fell a week ago and had pain in her left side. There was no head injury or loss of consciousness. Since then she has had low back pain and difficulty ambulating. On presentation BUN/creatinine found to be elevated at 16/2.0 mg/dL with potassium low at 3.2 mmol/L and phosphorus low at 1.7 mmol/L. I am consulted to assist with managing these problems. Patient is a poor historian. She is asking for medication for pain but then goes right back to sleep. History is thus obtained from a review of the records. Past History Past Medical History: hypertension, other (Alcohol abuse) Past Surgical History: No surgical history Social history: alcohol abuse. denies: smoking Family history: other (Unable to obtain) Medications and Allergies Allergies Allergy/AdvReac Type Severity Reaction Status Date / Time No Known Allergies Allergy Verified 06/11/21 01:40 Active Meds: Active Medications Acetaminophen (Acetaminophen 325 Mg Tab) 650 mg PO Q4H PRN PRN Reason: Pain MILD(1-3)/Fever >100.5/MOSCOSO Diphenhydramine HCl (Diphenhydramine 50 Mg/Ml Vial) 25 mg IV ONCE ONE Stop: 06/11/21 16:01 Diphenhydramine HCl (Diphenhydramine 50 Mg/Ml Vial) 25 mg IV ONCE NR Stop: 06/11/21 22:00 Famotidine (Famotidine 20 Mg/2 Ml Inj) 10 mg IV BID JUAN DAVID Last Admin: 06/11/21 14:23 Dose: 10 mg Heparin Sodium (Porcine) (Heparin 5,000 Unit/1 Ml Vial) 5,000 unit SUB-Q Q12HR JUAN DAVID Hydromorphone HCl (Hydromorphone 1 Mg/1 Ml Inj) 0.5 mg IV Q3H PRN PRN Reason: Pain , Severe (7-10) Last Admin: 06/11/21 14:11 Dose: 0.5 mg Sodium Chloride (Nacl 0.9% 1000 Ml) 1,000 mls @ 75 mls/hr IV DIRECT [facility] Last Admin: 06/11/21 04:40 Dose: 75 mls/hr Potassium Phosphate 40 mmol/ (Sodium Chloride) 513.3333 mls @ 83 mls/hr IV ONCE ONE Stop: 06/11/21 16:11 Lorazepam (Lorazepam 2 Mg/Ml Vial) 2 mg IV Q1HR PRN PRN Reason: CIWA-Ar 8-15 Last Admin: 06/11/21 14:43 Dose: 2 mg Metoclopramide HCl (Metoclopramide 10 Mg/2 Ml Inj) 5 mg IV Q6H PRN PRN Reason: Nausea And Vomiting Metoprolol Tartrate (Metoprolol Tartrate 25 Mg Tab) 25 mg PO BID [facility] Last Admin: 06/11/21 14:13 Dose: 25 mg Ondansetron HCl (Ondansetron 4 Mg/2 Ml Inj) 4 mg IV Q8H PRN PRN Reason: Nausea And Vomiting Last Admin: 06/11/21 03:29 Dose: 4 mg Oxycodone/Acetaminophen (Oxycodone /Acetaminophen 5-325mg Tab) 1 tab PO Q6H PRN PRN Reason: Pain, Moderate (4-6) Last Admin: 06/11/21 11:30 Dose: 1 tab Sodium Chloride (Sodium Chloride 0.9% 10 Ml Flush Syringe) 10 ml IV BID [facility] Last Admin: 06/11/21 14:15 Dose: 10 ml Sodium Chloride (Sodium Chloride 0.9% 10 Ml Flush Syringe) 10 ml IV PRN PRN PRN Reason: LINE FLUSH Review of Systems ROS unobtainable: due to mental status Exam - Vital Signs Vital signs: Vital Signs Temp Pulse Resp BP Pulse Ox 98 F 102 H 18 145/106 98 06/10/21 08:38 06/10/21 08:38 06/10/21 08:38 06/10/21 08:38 06/10/21 08:38 - Physical Exam Narrative exam: Middle-aged -[place] female lying in bed in no acute distress HEENT: NCAT, pink conjunctiva Neck: Supple, no venous distention CVS: S1S2 RRR with no murmur, rub or gallop Chest: Clear to auscultation Abdomen: Protuberant, soft, nontender, no organomegaly, bowel sounds are present Extremities: No edema Skin warm and dry Genitourinary deferred Neuro: Drowsy, awakens and answers to questions and goes right back to sleep, alert no focal deficits Results - Lab Results 06/11/21 01:19 06/11/21 01:19 Most recent lab results Calcium 8.6 mg/dL (8.4-10.2) 06/11/21 01:19 Phosphorus 1.70 mg/dL (2.5-4.5) L D 06/11/21 13:55 Magnesium 0.80 mg/dL (1.7-2.3) L* 06/11/21 01:19 Assessment and Plan - Patient Problems (1) NELLY (acute kidney injury) Current Visit: Yes Status: Acute Plan to address problem: Prerenal azotemia versus acute tubular necrosis secondary to volume depletion with decreased effective circulatory volume. Continue volume expansion. Get urine studies. Get renal ultrasound. Follow-up electrolytes and renal function (2) Acute encephalopathy Current Visit: Yes Status: Acute Plan to address problem: Toxic/metabolic encephalopathy. Continue neuro monitoring. Alcohol withdrawal protocol. 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 (7) Anemia Current Visit: Yes Status: Acute Plan to address problem: Get stool for occult blood. Follow-up hemoglobin
[2021-06-11] MEDS ORDERED: diphenhydrAMINE 50 MG/ML VIAL IV ONE (16:00)
[2021-06-11] MEDS ORDERED: diphenhydrAMINE 50 MG/ML VIAL IV NR (20:00)
[2021-06-12 06:21] LABS: Hematocrit 26.3 % (30.3-42.9); Hemoglobin 8.6 gm/dl (10.1-14.3); Mean Corpuscular HGB Conc 33 % (30-34); Mean Corpuscular Volume 101 fl (79-97); Platelet Count 204 K/mm3 (140-440); Red Cell Distribution Width 17.5 % (13.2-15.2)
[2021-06-12 06:38] LABS: Albumin 2.9 g/dL (3.9-5); Calcium 8.4 mg/dL (8.4-10.2)
[2021-06-12] MEDS: METOPROLOL TARTRATE 25 MG TAB PO SCH ×2 (09:55→21:18)
[2021-06-12] MEDS: HEPARIN 5,000 UNIT/1 ML VIAL SUB-Q SCH ×2 (09:55→21:17)
[2021-06-12] MEDS: FAMOTIDINE 10 MG TAB PO SCH ×2 (09:58→21:18)
[2021-06-12] MEDS: oxyCODONE /ACETAMINOPHEN 5-325MG TAB PO PRN (10:17)
--- NOTE | 2021-06-12 10:54 | Progress Note ---
Assessment and Plan - Patient Problems (1) NELLY (acute kidney injury) Current Visit: Yes Status: Acute Plan to address problem: Prerenal azotemia versus acute tubular necrosis secondary to volume depletion with decreased effective circulatory volume. Continue volume expansion. Get urine studies. Get renal ultrasound. Follow-up electrolytes and renal function (2) Acute encephalopathy Current Visit: Yes Status: Acute Plan to address problem: Toxic/metabolic encephalopathy. Continue Alcohol withdrawal protocol. Continue management by primary attending (3) Hypomagnesemia Current Visit: Yes Status: Acute Plan to address problem: Supplement magnesium and follow-up level (4) Hypokalemia Current Visit: Yes Status: Acute Plan to address problem: Supplement potassium and follow-up levels (5) Hypophosphatemia Current Visit: Yes Status: Acute Plan to address problem: Supplement phosphorus and follow-up level (6) Anemia Current Visit: Yes Status: Acute Plan to address problem: Get stool for occult blood. Follow-up hemoglobin (7) Alcohol withdrawal Current Visit: Yes Status: Acute Qualifiers: Complication of substance-induced condition: with delirium Qualified Code(s): F10.231 - Alcohol dependence with withdrawal delirium Plan to address problem: Underwriting Consultant on the importance of avoiding alcohol abuse when she is more appropriate. Subjective Date of service: 06/12/21 Principal diagnosis: NELLY Interval history: Patient awake, alert, in no acute distress Objective - Vital Signs Vital signs: Vital Signs - 12hr 06/12/21 06/12/21 06/12/21 00:00 04:17 06:22 Temperature 98.9 F Pulse Rate 78 89 89 Respiratory 18 Rate Respiratory 17 Rate [Back] Blood Pressure 145/96 O2 Sat by Pulse 97 98 Oximetry 06/12/21 08:10 Temperature 99.4 F Pulse Rate 81 Respiratory 18 Rate Respiratory Rate [Back] Blood Pressure 156/87 O2 Sat by Pulse 99 Oximetry - General Appearance General appearance: well-developed, well-nourished, appears stated age EENT: ATNC, PERRL, mucous membranes moist Neck: no JVD Respiratory: Present: Clear to Ascultation Cardiology: regular, S1S2 Gastrointestinal: normoactive bowel sounds Integumentary: no rash, other (no edema ) Neurologic: no focal deficit, alert and oriented x3, strength 5/5, CN 3-12 intact Psychiatric: mood/affect appropriate, cooperative - Lab 06/12/21 05:38 06/12/21 05:38 Most recent lab results Calcium 8.4 mg/dL (8.4-10.2) 06/12/21 05:38 Phosphorus 2.80 mg/dL (2.5-4.5) D 06/12/21 05:38 Magnesium 1.90 mg/dL (1.7-2.3) 06/12/21 05:38 Medications & Allergies - Medications Allergies/Adverse Reactions: Allergies No Known Allergies Allergy (Verified 06/11/21 01:40) Active Medications: Generic Name Dose Route Start Last Admin Trade Name Freq PRN Reason Stop Dose Admin Acetaminophen 650 mg 06/11/21 00:24 Acetaminophen 325 Mg Tab PO Q4H PRN Pain MILD(1-3)/Fever >100.5/MOSCOSO Famotidine 10 mg 06/12/21 10:00 06/12/21 09:58 Famotidine 10 Mg Tab PO 10 mg BID JUAN DAVID Administration Heparin Sodium (Porcine) 5,000 unit 06/11/21 00:30 06/12/21 09:55 Heparin 5,000 Unit/1 Ml Vial SUB-Q 5,000 unit Q12HR JUAN DAVID Administration Hydromorphone HCl 0.5 mg 06/11/21 00:24 06/11/21 14:11 Hydromorphone 1 Mg/1 Ml Inj IV 0.5 mg Q3H PRN Administration Pain , Severe (7-10) Sodium Chloride 1,000 mls @ 75 mls/hr 06/11/21 00:30 06/11/21 04:40 Nacl 0.9% 1000 Ml IV 75 mls/hr DIRECT JUAN DAVID Administration Lorazepam 2 mg 06/10/21 15:03 06/11/21 18:54 Lorazepam 2 Mg/Ml Vial IV 2 mg Q1HR PRN Administration CIWA-Ar 8-15 Metoclopramide HCl 5 mg 06/11/21 00:24 Metoclopramide 10 Mg/2 Ml Inj IV Q6H PRN Nausea And Vomiting Metoprolol Tartrate 25 mg 06/11/21 14:00 06/12/21 09:55 Metoprolol Tartrate 25 Mg Tab PO 25 mg BID JUAN DAVID Administration Ondansetron HCl 4 mg 06/11/21 00:24 06/11/21 03:29 Ondansetron 4 Mg/2 Ml Inj IV 4 mg Q8H PRN Administration Nausea And Vomiting Oxycodone/Acetaminophen 1 tab 06/11/21 00:24 06/12/21 10:17 Oxycodone /Acetaminophen 5-325mg Tab PO 1 tab Q6H PRN Administration Pain, Moderate (4-6) Sodium Chloride 10 ml 06/11/21 10:00 06/12/21 09:55 Sodium Chloride 0.9% 10 Ml Flush Syringe IV 10 ml BID JUAN DAVID Administration Sodium Chloride 10 ml 06/11/21 00:24 Sodium Chloride 0.9% 10 Ml Flush Syringe IV PRN PRN LINE FLUSH
--- NOTE | 2021-06-12 12:36 | Ultrasound Report ---
ULTRASOUND RENAL INDICATION / CLINICAL INFORMATION: NELLY. COMPARISON: None available. FINDINGS: RIGHT KIDNEY: Length = 8.4 cm. - Echogenicity: Increased echogenicity - Cortical Thickness: Normal. - Hydronephrosis: None. - Cyst / Mass: None. - Stones: None seen. LEFT KIDNEY: Length = 8.2 cm. - Echogenicity: Increased echogenicity. - Cortical Thickness: Decreased. - Hydronephrosis: None. - Cyst / Mass: None. - Stones: 3 to 4 mm echogenic structure in the left kidney as seen on image 21 likely represents a no nobstructing stone. URINARY BLADDER: No significant abnormality. FREE FLUID: None. ADDITIONAL FINDINGS: None. IMPRESSION: 1. Bilateral echogenic and atrophic kidneys compatible with medical renal disease. 2. Nonobstructing stone in the left kidney. Signer Name: Jonathon Jordan MD Signed: 06/12/2021 12:31 PM Workstation Name: [email or web address]
[2021-06-12] MEDS: LORazepam 2 MG/ML VIAL IV PRN ×3 (13:22→19:10)
[2021-06-12] MEDS: HYDROmorphone 1 MG/1 ML INJ IV PRN (13:30)
--- NOTE | 2021-06-12 14:02 | Progress Note ---
Subjective Date of service: 06/12/21 Principal diagnosis: NELLY Interval history: Altered sensorium for 1 day Left knee pain and left pelvic pain 65-year-old female with history of hypertension and alcohol use disorder is brought in by EMS complaining of difficulty walking due to low back pain and left hip pain. According to the EMS report, the patient was also found to be urinating and defecating on herself. The patient states that she drinks approximately 2 to 3 pints of liquor every day. She says that 1 week ago she lost her balance and fell onto her left side. She denies hitting her head or losing consciousness. However, after this fall she reports that she has had pain in her low back as well as left hip which has caused her difficulty in ambulating. She is unable to explain her incontinence. Other than the pain, she denies any associated headache, vision change, neck pain, chest pain, shortness of breath, cough, abdominal pain, nausea/vomiting, dysuria, focal weakness, sensory change, or any other complaints 06/11: Patient remains on with AMS, and tremulous, undergoing withdrawal. Will continue with aggressive electrolytes Replacement. Counselling provided to the patient about need to cease tobacco and etoh use. Anticipate discharge tomorrow. Will also add Psych consult FOR Patients professed Depression. 06/12 patient is awake and alert and is eating breakfast on her own. Still confused and tremulous. She was briefly off restraints but has been quite confused and needs restraints reordered. Discussed with RN. We will also req uest PT consult. Lab results reviewed (1) Acute Metabolic encephalopathy Current Visit: Yes Status: Acute Plan to address problem: Secondary to EtOH Improving IV fluids IV thiamine and B12 Patient is awake and alert and oriented to her name and age (2) Alcohol withdrawal Current Visit: Yes Status: Acute Qualifiers: Complication of substance-induced condition: with delirium Qualified Code(s): F10.231 - Alcohol dependence with withdrawal delirium Plan to address problem: On CIWA protocol (3) Fracture of left inferior pubic ramus Current Visit: Yes Status: Acute Qualifiers: Encounter type: initial encounter Plan to address problem: Possible subacute Ortho consulted We will request PT consult (4) Hypokalemia Current Visit: Yes Status: Acute Plan to address problem: Improved with supplements Monitor electrolytes (5) NELLY (acute kidney injury) Current Visit: Yes Status: Acute Plan to address problem: IV fluids for now Dehydration secondary to alcohol intake (6) Hypomagnesemia Current Visit: Yes Status: Acute Plan to address problem: Supplemented Improved (7) Hypophosphatemia Current Visit: Yes Status: Acute Plan to address problem: Supplemented with K-Phos Improved (8) Acute gastritis Current Visit: Yes Status: Chronic Qualifiers: Gastritis type: alcoholic Plan to address problem: IV Protonix for now (9) Low back pain Current Visit: Yes Status: Chronic Qualifiers: Chronicity: chronic Sciatica presence: without sciatica Plan to address problem: Analgesics as needed (10) Advance care planning Current Visit: Yes Status: Acute Plan to address problem: Disease education conducted, care plan discussed, diagnosis discussed, patient is full code, patient acknowledges understanding and agrees with care plan +30 minutes Macrocytic anemia Check B12 and folate levels Continue supplements with B12 and thiamine Objective - Constitutional Vitals: Vital Signs - 12hr 06/12/21 06/12/21 06/12/21 04:17 06:22 08:10 Temperature 98.9 F 99.4 F Pulse Rate 89 89 81 Respiratory 18 18 Rate Blood Pressure 145/96 156/87 O2 Sat by Pulse 98 99 Oximetry General appearance: Present: no acute distress - EENT Eyes: PERRL, EOM intact ENT: hearing intact - Neck Neck: supple, normal ROM - Respiratory Respiratory: bilateral: CTA - Cardiovascular Rhythm: regular Heart Sounds: Present: S1 & S2 - Gastrointestinal General gastrointestinal: Present: soft, non-tender Rectal Exam: deferred - Genitourinary Female genitourinary: deferred - Integumentary Integumentary: clear - Neurologic Neurologic: moves all extremities - Psychiatric Psychiatric: appropriate mood/affect - Labs CBC & Chem 7: 06/12/21 05:38 06/12/21 05:38 Labs: Abnormal lab results 06/11/21 06/11/21 06/12/21 Range/Units 13:55 13:55 05:38 RBC (3.65-5.03) M/mm3 Hgb (10.1-14.3) gm/dl Hct (30.3-42.9) % MCV (79-97) fl MCH (28-32) pg RDW (13.2-15.2) % Carbon Dioxide 19 L (22-30) mmol/L Creatinine 1.9 H (0.6-1.2) mg/dL Phosphorus 1.70 L D (2.5-4.5) mg/dL Magnesium 1.20 L (1.7-2.3) mg/dL Alkaline Phosphatase 195 H (35-129) units/L Albumin 2.9 L (3.9-5) g/dL 06/12/21 Range/Units 05:38 RBC 2.60 L (3.65-5.03) M/mm3 Hgb 8.6 L (10.1-14.3) gm/dl Hct 26.3 L (30.3-42.9) % MCV 101 H (79-97) fl MCH 33 H (28-32) pg RDW 17.5 H (13.2-15.2) % Carbon Dioxide (22-30) mmol/L Creatinine (0.6-1.2) mg/dL Phosphorus (2.5-4.5) mg/dL Magnesium (1.7-2.3) mg/dL Alkaline Phosphatase (35-129) units/L Albumin (3.9-5) g/dL
[2021-06-12] MEDS: POTASSIUM CHLORIDE 10 MEQ 10 MEQ/100 ML BAG IV SCH ×2 (15:37→15:38)
[2021-06-13] MEDS: oxyCODONE /ACETAMINOPHEN 5-325MG TAB PO PRN ×4 (03:05→22:01)
[2021-06-13] MEDS: LORazepam 2 MG/ML VIAL IV PRN ×2 (03:06→09:13)
[2021-06-13 06:17] LABS: Calcium 8.3 mg/dL (8.4-10.2)
[2021-06-13] MEDS: METOPROLOL TARTRATE 25 MG TAB PO SCH ×2 (09:12→22:01)
[2021-06-13] MEDS: FAMOTIDINE 10 MG TAB PO SCH ×2 (09:12→22:01)
[2021-06-13] MEDS: THIAMINE 100 MG TAB PO SCH (09:13)
--- NOTE | 2021-06-13 09:31 | Progress Note ---
Assessment and Plan - Patient Problems (1) NELLY (acute kidney injury) Current Visit: Yes Status: Acute Plan to address problem: Prerenal azotemia versus acute tubular necrosis secondary to volume depletion with decreased effective circulatory volume. Continue volume expansion. Follow- up electrolytes and renal function. Renal US showed bilateral echogenic kidneys, compatible with underlying medical renal disease. Also nonobstructive L nephrolithiasis seen (2) Acute encephalopathy Current Visit: Yes Status: Acute Plan to address problem: Toxic/metabolic encephalopathy. Continue Alcohol withdrawal protocol. Continue management by primary attending (3) Hypomagnesemia Current Visit: Yes Status: Acute Plan to address problem: Supplement magnesium and follow-up level (4) Hypokalemia Current Visit: Yes Status: Acute Plan to address problem: Supplement potassium and follow-up levels (5) Hypophosphatemia Current Visit: Yes Status: Acute Plan to address problem: Supplement phosphorus and follow-up level (6) Anemia Current Visit: Yes Status: Acute Plan to address problem: Get stool for occult blood. Follow-up hemoglobin (7) Alcohol withdrawal Current Visit: Yes Status: Acute Qualifiers: Complication of substance-induced condition: with delirium Qualified Code(s): F10.231 - Alcohol dependence with withdrawal delirium Plan to address problem: Medical Equipment Technician on the importance of avoiding alcohol abuse when she is more appropriate. Subjective Date of service: 06/13/21 Principal diagnosis: NELLY Interval history: Patient awake, alert, in no acute distress Objective - Vital Signs Vital signs: Vital Signs - 12hr 06/12/21 06/13/21 06/13/21 23:30 03:51 04:55 Temperature 98.6 F 97.9 F Pulse Rate 80 71 Respiratory 17 18 Rate Blood Pressure 161/92 138/92 O2 Sat by Pulse 99 100 93 Oximetry 06/13/21 07:36 Temperature 98.6 F Pulse Rate 81 Respiratory 20 Rate Blood Pressure 171/97 O2 Sat by Pulse 93 Oximetry - General Appearance General appearance: well-developed, well-nourished, appears stated age EENT: ATNC, PERRL, mucous membranes moist Neck: no JVD Respiratory: Present: Clear to Ascultation Cardiology: regular, S1S2 Gastrointestinal: normoactive bowel sounds Integumentary: no rash, other (no edema ) Neurologic: no focal deficit, alert and oriented x3, strength 5/5, CN 3-12 intact Psychiatric: mood/affect appropriate, cooperative - Lab 06/12/21 05:38 06/13/21 05:35 Most recent lab results Calcium 8.3 mg/dL (8.4-10.2) L 06/13/21 05:35 Phosphorus 2.80 mg/dL (2.5-4.5) D 06/12/21 05:38 Magnesium 1.90 mg/dL (1.7-2.3) 06/12/21 05:38 Medications & Allergies - Medications Allergies/Adverse Reactions: Allergies No Known Allergies Allergy (Verified 06/11/21 01:40) Active Medications: Generic Name Dose Route Start Last Admin Trade Name Freq PRN Reason Stop Dose Admin Acetaminophen 650 mg 06/11/21 00:24 Acetaminophen 325 Mg Tab PO Q4H PRN Pain MILD(1-3)/Fever >100.5/MOSCOSO Famotidine 10 mg 06/12/21 10:00 06/13/21 09:12 Famotidine 10 Mg Tab PO 10 mg BID JAUN DAVID Administration Heparin Sodium (Porcine) 5,000 unit 06/11/21 00:30 06/12/21 21:17 Heparin 5,000 Unit/1 Ml Vial SUB-Q 5,000 unit Q12HR JUAN DAVID Administration Hydromorphone HCl 0.5 mg 06/11/21 00:24 06/12/21 13:30 Hydromorphone 1 Mg/1 Ml Inj IV 0.5 mg Q3H PRN Administration Pain , Severe (7-10) Sodium Chloride 1,000 mls @ 75 mls/hr 06/11/21 00:30 06/11/21 04:40 Nacl 0.9% 1000 Ml IV 75 mls/hr DIRECT JUAN DAVID Administration Lorazepam 2 mg 06/10/21 15:03 06/13/21 09:13 Lorazepam 2 Mg/Ml Vial IV 2 mg Q1HR PRN Administration CIWA-Ar 8-15 Metoclopramide HCl 5 mg 06/11/21 00:24 Metoclopramide 10 Mg/2 Ml Inj IV Q6H PRN Nausea And Vomiting Metoprolol Tartrate 25 mg 06/11/21 14:00 06/13/21 09:12 Metoprolol Tartrate 25 Mg Tab PO 25 mg BID JUAN DAVID Administration Ondansetron HCl 4 mg 06/11/21 00:24 06/11/21 03:29 Ondansetron 4 Mg/2 Ml Inj IV 4 mg Q8H PRN Administration Nausea And Vomiting Oxycodone/Acetaminophen 1 tab 06/11/21 00:24 06/13/21 09:12 Oxycodone /Acetaminophen 5-325mg Tab PO 1 tab Q6H PRN Administration Pain, Moderate (4-6) Sodium Chloride 10 ml 06/11/21 10:00 06/13/21 09:13 Sodium Chloride 0.9% 10 Ml Flush Syringe IV 10 ml BID JUAN DAVID Administration Sodium Chloride 10 ml 06/11/21 00:24 Sodium Chloride 0.9% 10 Ml Flush Syringe IV PRN PRN LINE FLUSH Thiamine HCl 100 mg 06/13/21 10:00 06/13/21 09:13 Thiamine 100 Mg Tab PO 100 mg QDAY JUAN DAVID Administration
[2021-06-13] MEDS: HEPARIN 5,000 UNIT/1 ML VIAL SUB-Q SCH ×2 (16:07→22:02)
--- NOTE | 2021-06-13 18:51 | Progress Note ---
Assessment and Plan Assessment and plan: Altered sensorium for 1 day Left knee pain and left pelvic pain 65-year-old female with history of hypertension and alcohol use disorder is brought in by EMS complaining of difficulty walking due to low back pain and left hip pain. According to the EMS report, the patient was also found to be urinating and defecating on herself. The patient states that she drinks approximately 2 to 3 pints of liquor every day. She says that 1 week ago she lost her balance and fell onto her left side. She denies hitting her head or losing consciousness. However, after this fall she reports that she has had p ain in her low back as well as left hip which has caused her difficulty in ambulating. She is unable to explain her incontinence. Other than the pain, she denies any associated headache, vision change, neck pain, chest pain, shortness of breath, cough, abdominal pain, nausea/vomiting, dysuria, focal weakness, sensory change, or any other complaints 06/11: Patient remains on with AMS, and tremulous, undergoing withdrawal. Will continue with aggressive electrolytes Replacement. Counselling provided to the patient about need to cease tobacco and etoh use. Anticipate discharge tomorrow. Will also add Psych consult FOR Patients professed Depression. 06/12 patient is awake and alert and is eating breakfast on her own. Still confused and tremulous. She was briefly off restraints but has been quite confused and needs restraints reordered. Discussed with RN. We will also request PT consult. Lab results reviewed 06/13: Remains confused but not tachycardic abdominal splint continue CIWA protocol. Will DC IV fluids and this distress. Creatinine changed, nephrology following (1) Acute Metabolic encephalopathy Current Visit: Yes Status: Acute Plan to address problem: Secondary to EtOH Improving IV fluids IV thiamine and B12 Patient is awake and alert and oriented to her name and age (2) Alcohol withdrawal Current Visit: Yes Status: Acute Qualifiers: Complication of substance-induced condition: with delirium Qualified Code(s): F10.231 - Alcohol dependence with withdrawal delirium Plan to address problem: On CIWA protocol Confused but not tremulous or tachycardic currently. Patient admits to drinking heavy, the last drink about 4 5 days ago. B12 and folate levels normal. Continue thiamine and multivitamins. (3) Fracture of left inferior pubic ramus post fall Current Visit: Yes Status: Acute Qualifiers: Encounter type: initial encounter Plan to address problem: Possible subacute Ortho consulted No significant pain currently We will request PT consult (4) Hypokalemia Current Visit: Yes Status: Acute Plan to address problem: Improved with supplements Monitor electrolytes (5) NELLY (acute kidney injury) Current Visit: Yes Status: Acute Plan to address problem: IV fluids for now Dehydration secondary to alcohol intake Baseline creatinine unknown Nephrology consulted and following (6) Hypomagnesemia Current Visit: Yes Status: Acute Plan to address problem: Supplemented Improved (7) Hypophosphatemia Current Visit: Yes Status: Acute Plan to address problem: Supplemented with K-Phos Improved (8) Acute gastritis Current Visit: Yes Status: Chronic Qualifiers: Gastritis type: alcoholic Plan to address problem: IV Protonix for now (9) Low back pain Current Visit: Yes Status: Chronic Qualifiers: Chronicity: chronic Sciatica presence: without sciatica Plan to address problem: Analgesics as needed (10) Advance care planning Current Visit: Yes Status: Acute Plan to address problem: Disease education conducted, care plan discussed, diagnosis discussed, patient is full code, patient acknowledges understanding and agrees with care plan +30 minutes Discussed with the nursing staff. History Interval history: Patient is awake and able to answer some questions but confused and restless. Taking off her clothes. CIWA protocol. Not tremulous or tachycardic currently. Hospitalist Physical - Constitutional Vitals: Temp Pulse Resp BP Pulse Ox 98.6 F 81 20 171/97 98 06/13/21 07:36 06/13/21 07:36 06/13/21 07:36 06/13/21 07:36 06/13/21 15:47 General appearance: Present: no acute distress, disheveled, other (Restless) - EENT Eyes: Present: PERRL, EOM intact - Neck Neck: Present: supple - Respiratory Respiratory effort: normal Respiratory: bilateral: CTA - Cardiovascular Rhythm: regular - Extremities Extremities: No edema - Abdominal General gastrointestinal: soft, non-tender - Integumentary Integumentary: Absent: rash - Psychiatric Psychiatric: other (Confused) - Neurologic Neurologic: moves all extremities, other (Awake, somewhat drowsy, verbal, conf used, no tremors) Results - Labs CBC & Chem 7: 06/12/21 05:38 06/13/21 05:35 Labs: Laboratory Last Values WBC 6.4 K/mm3 (4.5-11.0) 06/12/21 05:38 RBC 2.60 M/mm3 (3.65-5.03) L 06/12/21 05:38 Hgb 8.6 gm/dl (10.1-14.3) L 06/12/21 05:38 Hct 26.3 % (30.3-42.9) L 06/12/21 05:38 MCV 101 fl (79-97) H 06/12/21 05:38 MCH 33 pg (28-32) H 06/12/21 05:38 MCHC 33 % (30-34) 06/12/21 05:38 RDW 17.5 % (13.2-15.2) H 06/12/21 05:38 Plt Count 204 K/mm3 (140-440) 06/12/21 05:38 Lymph % (Auto) 20.3 % (13.4-35.0) 06/11/21 01:19 [place] % (Auto) 6.0 % (0.0-7.3) 06/11/21 01:19 Eos % (Auto) 0.2 % (0.0-4.3) 06/11/21 01:19 Baso % (Auto) 0.2 % (0.0-1.8) 06/11/21 01:19 Lymph # (Auto) 1.4 K/mm3 (1.2-5.4) 06/11/21 01:19 [place] # (Auto) 0.4 K/mm3 (0.0-0.8) 06/11/21 01:19 Eos # (Auto) 0.0 K/mm3 (0.0-0.4) 06/11/21 01:19 Baso # (Auto) 0.0 K/mm3 (0.0-0.1) 06/11/21 01:19 Seg Neutrophils % 73.3 % (40.0-70.0) H 06/11/21 01:19 Seg Neutrophils # 5.2 K/mm3 (1.8-7.7) 06/11/21 01:19 PT 14.3 Sec. (12.2-14.9) 06/10/21 12:42 INR 1.00 (0.87-1.13) 06/10/21 12:42 APTT 36.7 Sec. (24.2-36.6) H 06/10/21 12:42 Sodium 138 mmol/L (137-145) 06/13/21 05:35 Potassium 3.8 mmol/L (3.6-5.0) 06/13/21 05:35 Chloride 105.0 mmol/L (98-107) 06/13/21 05:35 Carbon Dioxide 20 mmol/L (22-30) L 06/13/21 05:35 Anion Gap 17 mmol/L 06/13/21 05:35 BUN 17 mg/dL (7-17) 06/13/21 05:35 Creatinine 2.0 mg/dL (0.6-1.2) H 06/13/21 05:35 Estimated GFR 30 ml/min 06/13/21 05:35 BUN/Creatinine Ratio 9 % 06/13/21 05:35 Glucose 85 mg/dL (65-100) 06/13/21 05:35 Hemoglobin A1c 4.2 % (4-6) 06/11/21 01:19 Calcium 8.3 mg/dL (8.4-10.2) L 06/13/21 05:35 Phosphorus 2.80 mg/dL (2.5-4.5) D 06/12/21 05:38 Magnesium 1.90 mg/dL (1.7-2.3) 06/12/21 05:38 Total Bilirubin 0.80 mg/dL (0.1-1.2) 06/12/21 05:38 Direct Bilirubin < 0.2 mg/dL (0-0.2) 06/10/21 15:12 Indirect Bilirubin 0.3 mg/dL 06/10/21 15:12 AST 34 units/L (5-40) 06/12/21 05:38 ALT 12 units/L (7-56) 06/12/21 05:38 Alkaline Phosphatase 195 units/L (35-129) H 06/12/21 05:38 Ammonia 32.0 umol/L (25-60) 06/11/21 01:19 Total Protein 6.8 g/dL (6.3-8.2) 06/12/21 05:38 Albumin 2.9 g/dL (3.9-5) L 06/12/21 05:38 Albumin/Globulin Ratio 0.7 % 06/12/21 05:38 Amylase 94 units/L (27-131) 06/11/21 01:19 Lipase 24 units/L (13-60) 06/10/21 12:42 Vitamin B12 719.8 pg/mL (211-911) 06/12/21 14:50 Folate 12.22 ng/mL (7.3-26.0) 06/12/21 14:50 Plasma/Serum Alcohol 0.17 % (0-0.07) H 06/10/21 14:15 [place]/IV: Voiding Method Diaper Active Medications - Current Medications Current Medications: Generic Name Dose Route Start Last Admin Trade Name Freq PRN Reason Stop Dose Admin Acetaminophen 650 mg 06/11/21 00:24 Acetaminophen 325 Mg Tab PO Q4H PRN Pain MILD(1-3)/Fever >100.5/MOSCOSO Famotidine 10 mg 06/12/21 10:00 06/13/21 09:12 Famotidine 10 Mg Tab PO 10 mg BID JUAN DAVID Administration Heparin Sodium (Porcine) 5,000 unit 06/11/21 00:30 06/13/21 16:07 Heparin 5,000 Unit/1 Ml Vial SUB-Q Not Given Q12HR JUAN DAVID Hydromorphone HCl 0.5 mg 06/11/21 00:24 06/12/21 13:30 Hydromorphone 1 Mg/1 Ml Inj IV 0.5 mg Q3H PRN Administration Pain , Severe (7-10) Lorazepam 2 mg 06/10/21 15:03 06/13/21 09:13 Lorazepam 2 Mg/Ml Vial IV 2 mg Q1HR PRN Administration [facility] 8-15 Lorazepam 2 mg 06/13/21 15:32 Lorazepam 2 Mg Tab PO Q1HR PRN Agitation Metoclopramide HCl 5 mg 06/11/21 00:24 Metoclopramide 10 Mg/2 Ml Inj IV Q6H PRN Nausea And Vomiting Metoprolol Tartrate 25 mg 06/11/21 14:00 06/13/21 09:12 Metoprolol Tartrate 25 Mg Tab PO 25 mg BID JUAN DAVID Administration Ondansetron HCl 4 mg 06/11/21 00:24 06/11/21 03:29 Ondansetron 4 Mg/2 Ml Inj IV 4 mg Q8H PRN Administration Nausea And Vomiting Oxycodone/Acetaminophen 1 tab 06/11/21 00:24 06/13/21 16:06 Oxycodone /Acetaminophen 5-325mg Tab PO 1 tab Q6H PRN Administration Pain, Moderate (4-6) Sodium Chloride 10 ml 06/11/21 10:00 06/13/21 09:13 Sodium Chloride 0.9% 10 Ml Flush Syringe IV 10 ml BID JUAN DAVID Administration Sodium Chloride 10 ml 06/11/21 00:24 Sodium Chloride 0.9% 10 Ml Flush Syringe IV PRN PRN LINE FLUSH Thiamine HCl 100 mg 06/13/21 10:00 06/13/21 09:13 Thiamine 100 Mg Tab PO 100 mg QDAY JUAN DAVID Administration Nutrition/Malnutrition Assess - Dietary Evaluation Nutrition/Malnutrition Findings: Nutrition Notes Start: 06/11/21 14:30 Freq: Status: Active Protocol: Document 06/11/21 14:30 RS (Rec: 06/11/21 14:39 RS [id number]) Nutrition Notes Need for Assessment generated from: MD Order Initial or Follow up Assessment Current Diagnosis Acute Kidney Injury, Hypertension Other Pertinent Diagnosis EtOH abuse, acute encephalopathy Current Diet Regular diet Labs/Tests K: 3.2 Cr 2 M.8 Pertinent Medications NS @ 75 mL Zofran Thiamine + Folic Acid MVI Height 5 ft 4 in Weight 58.5 kg [place] Body Weight (kg) 54.54 BMI 22.1 Intake Prior to Admission Fair Weight change and time frame KIERAN Weight Status Appropriate Subjective/Other Information Consult for poor PO intake. Pt displays confusion and agitation. Per RN report, pt consumed 50% of lunch and breakfast tray. Undergoing electrolyte replacement therapy. Percent of energy/protein needs met: 60%/75% Burn Absent Trauma Absent GI Symptoms Vomiting Food Allergy No Current % PO Fair (50-74%) Minimum of two criteria No #1 Nutrition Diagnosis Inadequate oral intake Etiology EtOH abuse, acute encephalopathy As Evidenced by Signs and Symptoms pt consuming 50% of meals Is patient on ventilator? No Is Patient Ambulatory and/or Out of Bed No REE-([facility]-confined to bed) 1349.448 Kcal/Kg value to use for calculation 33 Approximate Energy Requirements Using 1931 kcal/Kg Calculation Used for Recommendations Kcal/kg Additional Notes PRO: 59-70g/day (1-1.2g/kgBW/ day) Fluid Nutrition Intervention Change Diet Order: Continue Regular diet Add Supplement/Snack (indicate name/kcal Ensure Enlive BID /protein ) Provides kCal: 700 Provides Protein (gm) 40 Goal #1 Pt will meet at least 75% of kcal/PRO needs via meals/ONS intake Anticipated Discharge Needs: Regular Diet + ONS BID Follow-Up By: 06/14/21 Additional Comments F/U for PO intake, ONS tolerance
[2021-06-13] MEDS: LORazepam 2 MG TAB PO PRN (22:02)
[2021-06-14] MEDS: HYDROmorphone 1 MG/1 ML INJ IV PRN ×2 (00:50→10:27)
--- NOTE | 2021-06-14 08:42 | Electrocardiograph Report ---
[facility] Test Date: 2021-06-11 Test Time: 08:47:03 Pat Name: EDITA AMBROSE Department: Room: A484 1 Gender: F Frame Bender: SIXTO : 1955 Requested By: JENNI CUI Order Number: [id number] Reading MD: Lata Parada Measurements Intervals [place] Rate: 104 P: 54 NH: 184 QRS: -29 QRSD: 80 T: 33 QT: 351 QTc: 462 Interpretive Statements Sinus tachycardia Probable left atrial enlargement Inferior infarct, old No previous ECG available for comparison Electronically Signed On 06-14-2021 8:41:52 EST by Lata Parada
--- NOTE | 2021-06-14 09:56 | Progress Note ---
Assessment and Plan - Patient Problems (1) NELLY (acute kidney injury) Current Visit: Yes Status: Acute Plan to address problem: Prerenal azotemia versus acute tubular necrosis secondary to volume depletion with decreased effective circulatory volume. Renal function stable. Renal US showed bilateral echogenic kidneys, compatible with underlying medical renal disease. patient most likely has underlying chronic kidney disease. Also nonobstructive L nephrolithiasis seen (2) Acute encephalopathy Current Visit: Yes Status: Acute Plan to address problem: Toxic/metabolic encephalopathy. Continue Alcohol withdrawal protocol. Continue management by primary attending (3) Hypomagnesemia Current Visit: Yes Status: Acute Plan to address problem: Supplement magnesium and follow-up level (4) Hypokalemia Current Visit: Yes Status: Acute Plan to address problem: Supplement potassium and follow-up levels (5) Hypophosphatemia Current Visit: Yes Status: Acute Plan to address problem: Supplement phosphorus and follow-up level (6) Anemia Current Visit: Yes Status: Acute Plan to address problem: Get stool for occult blood. Follow-up hemoglobin (7) Alcohol withdrawal Current Visit: Yes Status: Acute Qualifiers: Complication of substance-induced condition: with delirium Qualified Code(s): F10.231 - Alcohol dependence with withdrawal delirium Plan to address problem: [place] on the importance of avoiding alcohol abuse when she is more appropriate. Subjective Date of service: 06/14/21 Principal diagnosis: NELLY Interval history: Patient awake, alert, in no acute distress Objective - Vital Signs Vital signs: Vital Signs - 12hr 06/13/21 06/13/21 06/14/21 22:01 23:05 00:50 Temperature 97.4 F L Pulse Rate 81 Respiratory 18 18 28 H Rate Blood Pressure 120/86 O2 Sat by Pulse 96 Oximetry 06/14/21 06/14/21 03:11 08:18 Temperature 98.2 F 98.8 F Pulse Rate 86 97 H Respiratory 19 18 Rate Blood Pressure 134/76 151/88 O2 Sat by Pulse 98 99 Oximetry - General Appearance General appearance: well-developed, well-nourished, appears stated age EENT: ATNC, PERRL, mucous membranes moist Neck: no JVD Respiratory: Present: Clear to Ascultation Cardiology: regular, S1S2 Gastrointestinal: normoactive bowel sounds Integumentary: no rash Neurologic: no focal deficit, alert and oriented x3, strength 5/5, CN 3-12 intact Psychiatric: mood/affect appropriate, cooperative - Lab 06/12/21 05:38 06/13/21 05:35 Most recent lab results Calcium 8.3 mg/dL (8.4-10.2) L 06/13/21 05:35 Phosphorus 2.80 mg/dL (2.5-4.5) D 06/12/21 05:38 Magnesium 1.90 mg/dL (1.7-2.3) 06/12/21 05:38 Medications & Allergies - Medications Allergies/Adverse Reactions: Allergies No Known Allergies Allergy (Verified 06/11/21 01:40) Home Medications: Home Medications Medication Instructions Recorded Confirmed Last Taken Type No Known Home Medications [No 06/14/21 06/14/21 Unknown History Reported Home Medications] Active Medications: Generic Name Dose Route Start Last Admin Trade Name Freq PRN Reason Stop Dose Admin Acetaminophen 650 mg 06/11/21 00:24 06/13/21 21:05 Acetaminophen 325 Mg Tab PO 650 mg Q4H PRN Administration Pain MILD(1-3)/Fever >100.5/MOSCOSO Famotidine 10 mg 06/12/21 10:00 06/13/21 22:01 Famotidine 10 Mg Tab PO 10 mg BID JUAN DAVID Administration Heparin Sodium (Porcine) 5,000 unit 06/11/21 00:30 06/13/21 22:02 Heparin 5,000 Unit/1 Ml Vial SUB-Q Not Given Q12HR JUAN DAVID Hydromorphone HCl 0.5 mg 06/11/21 00:24 06/14/21 00:50 Hydromorphone 1 Mg/1 Ml Inj IV 0.5 mg Q3H PRN Administration Pain , Severe (7-10) Lorazepam 2 mg 06/10/21 15:03 06/13/21 09:13 Lorazepam 2 Mg/Ml Vial IV 2 mg Q1HR PRN Administration CIWA-Ar 8-15 Lorazepam 2 mg 06/13/21 15:32 06/13/21 22:02 Lorazepam 2 Mg Tab PO 2 mg Q1HR PRN Administration Agitation Metoclopramide HCl 5 mg 06/11/21 00:24 Metoclopramide 10 Mg/2 Ml Inj IV Q6H PRN Nausea And Vomiting Metoprolol Tartrate 25 mg 06/11/21 14:00 01/11/22 22:01 Metoprolol Tartrate 25 Mg Tab PO 25 mg BID JUAN DAVID Administration Ondansetron HCl 4 mg 06/11/21 00:24 06/11/21 03:29 Ondansetron 4 Mg/2 Ml Inj IV 4 mg Q8H PRN Administration Nausea And Vomiting Oxycodone/Acetaminophen 1 tab 06/11/21 00:24 06/13/21 22:01 Oxycodone /Acetaminophen 5-325mg Tab PO 1 tab Q6H PRN Administration Pain, Moderate (4-6) Sodium Chloride 10 ml 06/11/21 10:00 06/13/21 22:02 Sodium Chloride 0.9% 10 Ml Flush Syringe IV 10 ml BID JUAN DAVID Administration Sodium Chloride 10 ml 06/11/21 00:24 Sodium Chloride 0.9% 10 Ml Flush Syringe IV PRN PRN LINE FLUSH Thiamine HCl 100 mg 06/13/21 10:00 06/13/21 09:13 Thiamine 100 Mg Tab PO 100 mg QDAY JUAN DAVID Administration
[2021-06-14] MEDS: METOPROLOL TARTRATE 25 MG TAB PO SCH ×2 (10:24→21:12)
[2021-06-14] MEDS: FAMOTIDINE 10 MG TAB PO SCH ×2 (10:24→21:12)
[2021-06-14] MEDS: THIAMINE 100 MG TAB PO SCH (10:24)
[2021-06-14] MEDS: HEPARIN 5,000 UNIT/1 ML VIAL SUB-Q SCH ×2 (10:25→21:12)
[2021-06-14] MEDS: oxyCODONE /ACETAMINOPHEN 5-325MG TAB PO PRN ×2 (15:43→21:11)
--- NOTE | 2021-06-14 18:06 | Progress Note ---
Assessment and Plan Assessment and plan: Altered sensorium for 1 day Left knee pain and left pelvic pain 65-year-old female with history of hypertension and alcohol use disorder is brought in by EMS complaining of difficulty walking due to low back pain and left hip pain. According to the EMS report, the patient was also found to be urinating and defecating on herself. The patient states that she drinks approximately 2 to 3 pints of liquor every day. She says that 1 week ago she lost her balance and fell onto her left side. She denies hitting her head or losing consciousness. However, after this fall she reports that she has had p ain in her low back as well as left hip which has caused her difficulty in ambulating. She is unable to explain her incontinence. Other than the pain, she denies any associated headache, vision change, neck pain, chest pain, shortness of breath, cough, abdominal pain, nausea/vomiting, dysuria, focal weakness, sensory change, or any other complaints 06/11: Patient remains on with AMS, and tremulous, undergoing withdrawal. Will continue with aggressive electrolytes Replacement. Counselling provided to the patient about need to cease tobacco and etoh use. Anticipate discharge tomorrow. Will also add Psych consult FOR Patients professed Depression. 06/12 patient is awake and alert and is eating breakfast on her own. Still confused and tremulous. She was briefly off restraints but has been quite confused and needs restraints reordered. Discussed with RN. We will also request PT consult. Lab results reviewed 06/13: Remains confused but not tachycardic abdominal splint continue CIWA protocol. Will DC IV fluids and this distress. Creatinine changed, nephrology following 06/14: More confused today. Drowsy but on Ativan as per CIWA. (1) Acute Metabolic encephalopathy Current Visit: Yes Status: Acute Plan to address problem: Secondary to EtOH Improving IV fluids IV thiamine and B12 Patient is awake and alert and oriented to her name and age (2) Alcohol withdrawal Current Visit: Yes Status: Acute Qualifiers: Complication of substance-induced condition: with delirium Qualified Code(s): F10.231 - Alcohol dependence with withdrawal delirium Plan to address problem: On CIWA protocol Confused but not tremulous or tachycardic currently. Patient admits to drinking heavy, the last drink about 4 5 days ago. B12 and folate levels normal. Continue thiamine and multivitamins. (3) Fracture of left inferior pubic ramus post fall Current Visit: Yes Status: Acute Qualifiers: Encounter type: initial encounter Plan to address problem: Possible subacute Ortho consulted No significant pain currently We will request PT consult (4) Hypokalemia Current Visit: Yes Status: Acute Plan to address problem: Improved with supplements Monitor electrolytes (5) NELLY (acute kidney injury) Current Visit: Yes Status: Acute Plan to address problem: IV fluids for now Dehydration secondary to alcohol intake Baseline creatinine unknown Nephrology consulted and following (6) Hypomagnesemia Current Visit: Yes Status: Acute Plan to address problem: Supplemented Improved (7) Hypophosphatemia Current Visit: Yes Status: Acute Plan to address problem: Supplemented with K-Phos Improved (8) Acute gastritis Current Visit: Yes Status: Chronic Qualifiers: Gastritis type: alcoholic Plan to address problem: IV Protonix for now (9) Low back pain Current Visit: Yes Status: Chronic Qualifiers: Chronicity: chronic Sciatica presence: without sciatica Plan to address problem: Analgesics as needed (10) Advance care planning Current Visit: Yes Status: Acute Plan to address problem: Disease education conducted, care plan discussed, diagnosis discussed, patient is full code, patient acknowledges understanding and agrees with care plan +30 minutes Discussed with the nursing staff. History Interval history: More confused today. Remains on the CIWA protocol. Afebrile with stable vital signs. Now tremulous and tachycardic. Hospitalist Physical - Constitutional Vitals: Temp Pulse Resp BP Pulse Ox 98.0 F 94 H 18 114/93 97 06/14/21 12:02 06/14/21 12:02 06/14/21 12:02 06/14/21 12:02 06/14/21 12:02 General appearance: Present: no acute distress - EENT Eyes: Present: PERRL, EOM intact ENT: clear oral mucosa - Neck Neck: Present: supple - Respiratory Respiratory effort: normal Respiratory: bilateral: CTA - Cardiovascular Rhythm: regular - Extremities Extremities: No edema - Abdominal General gastrointestinal: soft, non-tender - Integumentary Integumentary: Absent: rash - Neurologic Neurologic: other (Awake but more confused today. Drowsy. Moves all extremities.) Results - Labs CBC & Chem 7: 06/12/21 05:38 06/13/21 05:35 Labs: Laboratory Last Values WBC 6.4 K/mm3 (4.5-11.0) 06/12/21 05:38 RBC 2.60 M/mm3 (3.65-5.03) L 06/12/21 05:38 Hgb 8.6 gm/dl (10.1-14.3) L 06/12/21 05:38 Hct 26.3 % (30.3-42.9) L 06/12/21 05:38 MCV 101 fl (79-97) H 06/12/21 05:38 MCH 33 pg (28-32) H 06/12/21 05:38 MCHC 33 % (30-34) 06/12/21 05:38 RDW 17.5 % (13.2-15.2) H 06/12/21 05:38 Plt Count 204 K/mm3 (140-440) 06/12/21 05:38 Lymph % (Auto) 20.3 % (13.4-35.0) 06/11/21 01:19 [place] % (Auto) 6.0 % (0.0-7.3) 06/11/21 01:19 Eos % (Auto) 0.2 % (0.0-4.3) 06/11/21 01:19 Baso % (Auto) 0.2 % (0.0-1.8) 06/11/21 01:19 Lymph # (Auto) 1.4 K/mm3 (1.2-5.4) 06/11/21 01:19 [place] # (Auto) 0.4 K/mm3 (0.0-0.8) 06/11/21 01:19 Eos # (Auto) 0.0 K/mm3 (0.0-0.4) 06/11/21 01:19 Baso # (Auto) 0.0 K/mm3 (0.0-0.1) 06/11/21 01:19 Seg Neutrophils % 73.3 % (40.0-70.0) H 06/11/21 01:19 Seg Neutrophils # 5.2 K/mm3 (1.8-7.7) 06/11/21 01:19 PT 14.3 Sec. (12.2-14.9) 06/10/21 12:42 INR 1.00 (0.87-1.13) 06/10/21 12:42 APTT 36.7 Sec. (24.2-36.6) H 06/10/21 12:42 Sodium 138 mmol/L (137-145) 06/13/21 05:35 Potassium 3.8 mmol/L (3.6-5.0) 06/13/21 05:35 Chloride 105.0 mmol/L (98-107) 06/13/21 05:35 Carbon Dioxide 20 mmol/L (22-30) L 06/13/21 05:35 Anion Gap 17 mmol/L 06/13/21 05:35 BUN 17 mg/dL (7-17) 06/13/21 05:35 Creatinine 2.0 mg/dL (0.6-1.2) H 06/13/21 05:35 Estimated GFR 30 ml/min 06/13/21 05:35 BUN/Creatinine Ratio 9 % 06/13/21 05:35 Glucose 85 mg/dL (65-100) 06/13/21 05:35 Hemoglobin A1c 4.2 % (4-6) 06/11/21 01:19 Calcium 8.3 mg/dL (8.4-10.2) L 06/13/21 05:35 Phosphorus 2.80 mg/dL (2.5-4.5) D 06/12/21 05:38 Magnesium 1.90 mg/dL (1.7-2.3) 06/12/21 05:38 Total Bilirubin 0.80 mg/dL (0.1-1.2) 06/12/21 05:38 Direct Bilirubin < 0.2 mg/dL (0-0.2) 06/10/21 15:12 Indirect Bilirubin 0.3 mg/dL 06/10/21 15:12 AST 34 units/L (5-40) 06/12/21 05:38 ALT 12 units/L (7-56) 06/12/21 05:38 Alkaline Phosphatase 195 units/L (35-129) H 06/12/21 05:38 Ammonia 32.0 umol/L (25-60) 06/11/21 01:19 Total Protein 6.8 g/dL (6.3-8.2) 06/12/21 05:38 Albumin 2.9 g/dL (3.9-5) L 06/12/21 05:38 Albumin/Globulin Ratio 0.7 % 06/12/21 05:38 Amylase 94 units/L (27-131) 06/11/21 01:19 Lipase 24 units/L (13-60) 06/10/21 12:42 Vitamin B12 719.8 pg/mL (211-911) 06/12/21 14:50 Folate 12.22 ng/mL (7.3-26.0) 06/12/21 14:50 Plasma/Serum Alcohol 0.17 % (0-0.07) H 06/10/21 14:15 Gallagher/IV: Voiding Method Bedpan Active Medications - Current Medications Current Medications: Generic Name Dose Route Start Last Admin Trade Name Freq PRN Reason Stop Dose Admin Acetaminophen 650 mg 06/11/21 00:24 06/13/21 21:05 Acetaminophen 325 Mg Tab PO 650 mg Q4H PRN Administration Pain MILD(1-3)/Fever >100.5/MOSCOSO Famotidine 10 mg 06/12/21 10:00 06/14/21 10:24 Famotidine 10 Mg Tab PO 10 mg BID JUAN DAVID Administration Heparin Sodium (Porcine) 5,000 unit 06/11/21 00:30 06/14/21 10:25 Heparin 5,000 Unit/1 Ml Vial SUB-Q 5,000 unit Q12HR JUAN DAVID Administration Hydromorphone HCl 0.5 mg 06/11/21 00:24 06/14/21 10:27 Hydromorphone 1 Mg/1 Ml Inj IV 0.5 mg Q3H PRN Administration Pain , Severe (7-10) Lorazepam 2 mg 06/10/21 15:03 06/13/21 09:13 Lorazepam 2 Mg/Ml Vial IV 2 mg Q1HR PRN Administration CIWA-Ar 8-15 Lorazepam 2 mg 06/13/21 15:32 06/13/21 22:02 Lorazepam 2 Mg Tab PO 2 mg Q1HR PRN Administration Agitation Metoclopramide HCl 5 mg 06/11/21 00:24 Metoclopramide 10 Mg/2 Ml Inj IV Q6H PRN Nausea And Vomiting Metoprolol Tartrate 25 mg 06/11/21 14:00 06/14/21 10:24 Metoprolol Tartrate 25 Mg Tab PO 25 mg BID JUAN DAVID Administration Ondansetron HCl 4 mg 06/11/21 00:24 06/11/21 03:29 Ondansetron 4 Mg/2 Ml Inj IV 4 mg Q8H PRN Administration Nausea And Vomiting Oxycodone/Acetaminophen 1 tab 06/11/21 00:24 06/14/21 15:43 Oxycodone /Acetaminophen 5-325mg Tab PO 1 tab Q6H PRN Administration Pain, Moderate (4-6) Sodium Chloride 10 ml 06/11/21 10:00 06/14/21 10:24 Sodium Chloride 0.9% 10 Ml Flush Syringe IV 10 ml BID JUAN DAVID Administration Sodium Chloride 10 ml 06/11/21 00:24 Sodium Chloride 0.9% 10 Ml Flush Syringe IV PRN PRN LINE FLUSH Thiamine HCl 100 mg 06/13/21 10:00 06/14/21 10:24 Thiamine 100 Mg Tab PO 100 mg QDAY JUAN DAVID Administration Nutrition/Malnutrition Assess - Dietary Evaluation Nutrition/Malnutrition Findings: Nutrition Notes Start: 06/11/21 14:30 Freq: Status: Active Protocol: Document 06/14/21 17:23 MARLO (Rec: 06/14/21 17:32 MARLO [email or web address]) Nutrition Notes Initial or Follow up Brief Note Current Diet Regular Diet (since B 06/11). Height 5 ft 4 in Weight 58.5 kg [place] Body Weight (kg) 54.54 BMI 22.1 Weight change and time frame No body weight change reported . Weight Status Appropriate Subjective/Other Information RD consult for routine F/U on dietary eveluation. Dietary Supplements d/c. PO intake of meals has been Good (100%), according to ADL notes. Percent of energy/protein needs met: Prescribed Regular Diet provides for energy/protein needs (2,289 Kcal/89 g) during LOS. Current % PO Good (75-100%) Minimum of two criteria No #1 Nutrition Diagnosis Inadequate oral intake Comments: PO intake of meals has been Good (100%), according to ADL notes. Diagnosis Progress(for reassessment Resolved documentation) Nutrition Intervention Change Diet Order: Continue Regular Diet. Add Supplement/Snack (indicate name/kcal d/c. /protein ) Goal #1 Maintain body weight within +/ -3% of admission body weight during LOS. Revisit per MD consult or patient Sign Off request: Additional Comments Continue monitoring food tolerance, %PO intake of meals , and BM.
[2021-06-15] MEDS ORDERED: hydrALAZINE 20 MG/1 ML INJ IV SCH (04:06)
[2021-06-15] MEDS ORDERED: hydrALAZINE 20 MG/1 ML INJ IV PRN (04:14)
[2021-06-15] MEDS: HYDROmorphone 1 MG/1 ML INJ IV PRN (04:35)
[2021-06-15] MEDS: LORazepam 2 MG TAB PO PRN (07:58)
[2021-06-15] MEDS: oxyCODONE /ACETAMINOPHEN 5-325MG TAB PO PRN ×2 (07:58→13:30)
[2021-06-15] MEDS: THIAMINE 100 MG TAB PO SCH (09:49)
[2021-06-15] MEDS: FAMOTIDINE 10 MG TAB PO SCH ×2 (09:49→21:40)
[2021-06-15] MEDS: METOPROLOL TARTRATE 25 MG TAB PO SCH ×2 (09:49→21:40)
[2021-06-15] MEDS: HEPARIN 5,000 UNIT/1 ML VIAL SUB-Q SCH ×2 (09:49→21:40)
--- NOTE | 2021-06-15 11:23 | Consultation ---
History of Present Illness - Reason for Consult Consult date: 06/15/21 Reason for consult: Depression - Chief Complaint Chief complaint: Altered sensorium for 1 day Left knee pain and left pelvic pain - History of Present Psychiatric Illness Per Note:65-year-old female with history of hypertension and alcohol use disorder is brought in by EMS complaining of difficulty walking due to low back pain and left hip pain. According to the EMS report, the patient was also found to be urinating and defecating on herself. The patient states that she drinks approximately 2 to 3 pints of liquor every day. She says that 1 week ago she lost her balance and fell onto her left side. She denies hitting her head or losing consciousness. However, after this fall she reports that she has had pain in her low back as well as left hip which has caused her difficulty in ambulating. She is unable to explain her incontinence. Other than the pain, she denies any associated headache, vision change, neck pain, chest pain, shortness of breath, cough, abdominal pain, nausea/vomiting, dysuria, focal weakness, sensory change, or any other complaints Apoorva Bela is a 65 year old female with history of bipolar and alcohol use disorder. The patient was seen this morning. The patient states she is doing w ell. The patient is noncompliant with psychotropic medications. She reports that she started drinking at age 21; longest sobriety periods as one year. She reports daily alcohol use of 4-5 bottles of Naomie" When asked why she drinks she states " I drink when I'm depressed." The patient admits being anxious, no tremors noted and she denies cravings for alcohol. She denies any current suicidal/homicidal ideation and denies hallucinations. PAST PSYCHIATRIC HISTORY: Diagnoses:Depression Suicide attempts or Self-harm behavior: Denies Prior psychiatric hospitalizations: Denies Substance Abuse history: unable to recall Outpatient treatment: Unknown PAST MEDICAL HISTORY: unknown Family Psychiatric History: None reported or documented SOCIAL HISTORY Marital Status: Living Arrangements: Lives with a friend Employment Status: Disable- SSI Access to guns/weapons: Denies Education:11 History of Abuse:Denies Legal History: Denies REVIEW OF SYSTEMS Constitutional: Negative for weight loss ENT: Negative for stridor Respiratory: Negative for cough or hemoptysis All other systems reviewed and are negative MENTAL STATUS EXAMINATION General Appearance and Behavior: Age appropriate, good hygiene, wearing appropriate clothes. calm, cooperative Cooperation: Cooperative Psychomotor Behavior: Psychomotor normal Mood:anxious Affect and affective range: congruent with stated mood Thought Process: goal directed Thought Content: Reality Oriented Speech: normal tone and pace Suicidal Ideation: Denies Homicidal Ideation: Denies Hallucinations: Denies Delusions:Denies Impulse Control: Limited Insight and Judgment: Limited insight and good judgment Memory: Limited Attention: distracted Orientation: a/o x 3 Assessment (1)Alcohol use disorder (2)Hx of bipolar Current Visit: Yes Status: Acute Treatment plan I agree with the current treatment plan Start Zoloft 25 mg po daily Continue previous prescribed meds Risks, benefits and alternatives of medications discussed with the patient, questions answered and consent obtained from patient. PSYCHOTHERAPY: Supportive psychotherapy provided MEDICAL: Per primary team DELIRIUM PRECAUTIONS: Please re-orient patient frequently, keep lights on during the day, and minimize benzodiazepines and opiates as these medications could worsen patient's confusion. MEDICAL ASSEMBLY: Per medical team DISPOSITION: Do not Recommend acute inpatient psychiatric hospitalization. The patient is to follow up with outpatient psych in 7 to 14 days upon discharge. [facility] [employer] will provide patient with out patient resources. she is to abstain from all illicit drug use. Will sign off. Thank you for the consult. Please contact with any questions and/or concerns. Case staffed with Dr. Wheeler Medications and Allergies Medications and Allergies Allergies Allergy/AdvReac Type Severity Reaction Status Date / Time No Known Allergies Allergy Verified 06/11/21 01:40 Home Medications Medication Instructions Recorded Confirmed Last Taken Type Sertraline [Zoloft] 25 mg PO QDAY 30 Days #30 tab 06/15/21 Unknown Rx Active Meds: Active Medications Acetaminophen (Acetaminophen 325 Mg Tab) 650 mg PO Q4H PRN PRN Reason: Pain MILD(1-3)/Fever >100.5/MOSCOSO Last Admin: 06/13/21 21:05 Dose: 650 mg Famotidine (Famotidine 10 Mg Tab) 10 mg PO BID [facility] Last Admin: 06/15/21 09:49 Dose: 10 mg Heparin Sodium (Porcine) (Heparin 5,000 Unit/1 Ml Vial) 5,000 unit SUB-Q Q12HR [facility] Last Admin: 06/15/21 09:49 Dose: 5,000 unit Hydralazine HCl (Hydralazine 20 Mg/1 Ml Inj) 10 mg IV Q6H PRN PRN Reason: Hypotension Last Admin: 06/15/21 04:29 Dose: 10 mg Hydromorphone HCl (Hydromorphone 1 Mg/1 Ml Inj) 0.5 mg IV Q3H PRN PRN Reason: Pain , Severe (7-10) Last Admin: 06/15/21 04:35 Dose: 0.5 mg Lorazepam (Lorazepam 2 Mg/Ml Vial) 2 mg IV Q1HR PRN PRN Reason: CIWA-Ar 8-15 Last Admin: 06/13/21 09:13 Dose: 2 mg Lorazepam (Lorazepam 2 Mg Tab) 2 mg PO Q1HR PRN PRN Reason: Agitation Last Admin: 06/15/21 07:58 Dose: 2 mg Metoclopramide HCl (Metoclopramide 10 Mg/2 Ml Inj) 5 mg IV Q6H PRN PRN Reason: Nausea And Vomiting Metoprolol Tartrate (Metoprolol Tartrate 25 Mg Tab) 25 mg PO BID [facility] Last Admin: 06/15/21 09:49 Dose: 25 mg Ondansetron HCl (Ondansetron 4 Mg/2 Ml Inj) 4 mg IV Q8H PRN PRN Reason: Nausea And Vomiting Last Admin: 06/11/21 03:29 Dose: 4 mg Oxycodone/Acetaminophen (Oxycodone /Acetaminophen 5-325mg Tab) 1 tab PO Q6H PRN PRN Reason: Pain, Moderate (4-6) Last Admin: 06/15/21 07:58 Dose: 1 tab Sertraline HCl (Sertraline 25 Mg Tab) 25 mg PO QDAY [facility] Sodium Chloride (Sodium Chloride 0.9% 10 Ml Flush Syringe) 10 ml IV BID [facility] Last Admin: 06/15/21 04:30 Dose: 10 ml Sodium Chloride (Sodium Chloride 0.9% 10 Ml Flush Syringe) 10 ml IV PRN PRN PRN Reason: LINE FLUSH Thiamine HCl (Thiamine 100 Mg Tab) 100 mg PO QDAY [facility] Last Admin: 06/15/21 09:49 Dose: 100 mg Mental Status Exam - Vital signs Last Vital Signs Temp 98.3 F 06/15/21 08:01 Pulse 89 06/15/21 08:01 Resp 20 06/15/21 08:01 BP 142/92 06/15/21 08:01 Pulse Ox 96 06/15/21 08:01 Results Result Diagrams: 06/15/21 13:44 06/15/21 13:44 All other labs normal.
[2021-06-15] MEDS: SERTRALINE 25 MG TAB PO SCH (13:30)
--- NOTE | 2021-06-15 13:35 | Progress Note ---
Assessment and Plan - Patient Problems (1) NELLY (acute kidney injury) Current Visit: Yes Status: Acute Plan to address problem: Prerenal azotemia versus acute tubular necrosis secondary to volume depletion with decreased effective circulatory volume. Renal function stable. Renal US showed bilateral echogenic kidneys, compatible with underlying medical renal disease. patient most likely has underlying chronic kidney disease. Also nonobstructive L nephrolithiasis seen (2) Acute encephalopathy Current Visit: Yes Status: Acute Plan to address problem: Toxic/metabolic encephalopathy. Continue Alcohol withdrawal protocol. Continue management by primary attending (3) Hypomagnesemia Current Visit: Yes Status: Acute Plan to address problem: Supplement magnesium and follow-up level (4) Hypokalemia Current Visit: Yes Status: Acute Plan to address problem: Supplement potassium and follow-up levels (5) Hypophosphatemia Current Visit: Yes Status: Acute Plan to address problem: Supplement phosphorus and follow-up level (6) Anemia Current Visit: Yes Status: Acute Plan to address problem: likely anemia in CKD. Transfuse prn for Hb < 7 (7) Alcohol withdrawal Current Visit: Yes Status: Acute Qualifiers: Complication of substance-induced condition: with delirium Qualified Code(s): F10.231 - Alcohol dependence with withdrawal delirium Plan to address problem: [facility] Expert on the importance of avoiding alcohol abuse when she is more appropriate. Subjective Date of service: 06/15/21 Principal diagnosis: NELLY Interval history: Patient awake, alert, in no acute distress Objective - Vital Signs Vital signs: Vital Signs - 12hr 06/15/21 06/15/21 06/15/21 03:14 04:29 06:08 Temperature 98.3 F Pulse Rate 99 H Respiratory 18 Rate Blood Pressure 163/121 169/108 132/89 O2 Sat by Pulse 98 Oximetry 06/15/21 06/15/21 06/15/21 07:58 08:01 11:18 Temperature 98.3 F 98.8 F Pulse Rate 89 82 Respiratory 22 20 18 Rate Blood Pressure 142/92 154/97 O2 Sat by Pulse 96 98 Oximetry - General Appearance General appearance: well-developed, well-nourished, appears stated age EENT: ATNC, PERRL, mucous membranes moist Neck: no JVD Respiratory: Present: Clear to Ascultation Cardiology: regular, S1S2 Gastrointestinal: normoactive bowel sounds Integumentary: no rash Neurologic: no focal deficit, alert and oriented x3, strength 5/5, CN 3-12 intact Psychiatric: mood/affect appropriate, cooperative - Lab 06/12/21 05:38 06/13/21 05:35 Most recent lab results Calcium 8.3 mg/dL (8.4-10.2) L 06/13/21 05:35 Phosphorus 2.80 mg/dL (2.5-4.5) D 06/12/21 05:38 Magnesium 1.90 mg/dL (1.7-2.3) 06/12/21 05:38 Medications & Allergies - Medications Allergies/Adverse Reactions: Allergies No Known Allergies Allergy (Verified 06/11/21 01:40) Home Medications: Home Medications Medication Instructions Recorded Confirmed Last Taken Type Sertraline [Zoloft] 25 mg PO QDAY 30 Days #30 tab 06/15/21 Unknown Rx Active Medications: Generic Name Dose Route Start Last Admin Trade Name Freq PRN Reason Stop Dose Admin Acetaminophen 650 mg 06/11/21 00:24 06/13/21 21:05 Acetaminophen 325 Mg Tab PO 650 mg Q4H PRN Administration Pain MILD(1-3)/Fever >100.5/MOSCOSO Famotidine 10 mg 06/12/21 10:00 06/15/21 09:49 Famotidine 10 Mg Tab PO 10 mg BID JUAN DAVID Administration Heparin Sodium (Porcine) 5,000 unit 06/11/21 00:30 06/15/21 09:49 Heparin 5,000 Unit/1 Ml Vial SUB-Q 5,000 unit Q12HR JUAN DAVID Administration Hydralazine HCl 10 mg 06/15/21 04:14 06/15/21 04:29 Hydralazine 20 Mg/1 Ml Inj IV 10 mg Q6H PRN Administration Hypotension Hydromorphone HCl 0.5 mg 06/11/21 00:24 06/15/21 04:35 Hydromorphone 1 Mg/1 Ml Inj IV 0.5 mg Q3H PRN Administration Pain , Severe (7-10) Lorazepam 2 mg 06/10/21 15:03 06/13/21 09:13 Lorazepam 2 Mg/Ml Vial IV 2 mg Q1HR PRN Administration CIWA-Ar 8-15 Lorazepam 2 mg 06/13/21 15:32 06/15/21 07:58 Lorazepam 2 Mg Tab PO 2 mg Q1HR PRN Administration Agitation Metoclopramide HCl 5 mg 06/11/21 00:24 Metoclopramide 10 Mg/2 Ml Inj IV Q6H PRN Nausea And Vomiting Metoprolol Tartrate 25 mg 06/11/21 14:00 06/15/21 09:49 Metoprolol Tartrate 25 Mg Tab PO 25 mg BID JUAN DAVID Administration Ondansetron HCl 4 mg 06/11/21 00:24 06/11/21 03:29 Ondansetron 4 Mg/2 Ml Inj IV 4 mg Q8H PRN Administration Nausea And Vomiting Oxycodone/Acetaminophen 1 tab 06/11/21 00:24 06/15/21 07:58 Oxycodone /Acetaminophen 5-325mg Tab PO 1 tab Q6H PRN Administration Pain, Moderate (4-6) Sertraline HCl 25 mg 06/15/21 12:00 Sertraline 25 Mg Tab PO QDAY JUAN DAVID Sodium Chloride 10 ml 06/11/21 10:00 06/15/21 04:30 Sodium Chloride 0.9% 10 Ml Flush Syringe IV 10 ml BID JUAN DAVID Administration Sodium Chloride 10 ml 06/11/21 00:24 Sodium Chloride 0.9% 10 Ml Flush Syringe IV PRN PRN LINE FLUSH Thiamine HCl 100 mg 06/13/21 10:00 06/15/21 09:49 Thiamine 100 Mg Tab PO 100 mg QDAY JUAN DAVID Administration
[2021-06-15 15:03] LABS: Hematocrit 21.7 % (30.3-42.9); Hemoglobin 6.9 gm/dl (10.1-14.3); Mean Corpuscular HGB Conc 32 % (30-34); Mean Corpuscular Volume 102 fl (79-97); Platelet Count 154 K/mm3 (140-440); Red Blood Count 2.13 M/mm3 (3.65-5.03); Red Cell Distribution Width 17.3 % (13.2-15.2)
[2021-06-15 15:05] LABS: Albumin 2.6 g/dL (3.9-5); Calcium 8.2 mg/dL (8.4-10.2)
[2021-06-15 17:50] LABS: Macrocytosis 1+; Platelet Estimate Consistent w Auto; Total Cells Counted 100; Toxic Vacuolation Few
--- NOTE | 2021-06-15 21:12 | Progress Note ---
Hospitalist Physical - Constitutional Vitals: Temp Pulse Resp BP Pulse Ox 99.2 F 87 20 145/97 100 06/15/21 17:00 06/15/21 17:00 06/15/21 17:00 06/15/21 17:00 06/15/21 17:00 General appearance: Present: no acute distress Results - Labs CBC & Chem 7: 06/15/21 13:44 06/15/21 13:44 Labs: Laboratory Last Values WBC 6.1 K/mm3 (4.5-11.0) 06/15/21 13:44 RBC 2.13 M/mm3 (3.65-5.03) L 06/15/21 13:44 Hgb 6.9 gm/dl (10.1-14.3) L 06/15/21 13:44 Hct 21.7 % (30.3-42.9) L 06/15/21 13:44 MCV 102 fl (79-97) H 06/15/21 13:44 MCH 32 pg (28-32) 06/15/21 13:44 MCHC 32 % (30-34) 06/15/21 13:44 RDW 17.3 % (13.2-15.2) H 06/15/21 13:44 Plt Count 154 K/mm3 (140-440) 06/15/21 13:44 Lymph % (Auto) 20.3 % (13.4-35.0) 06/11/21 01:19 Andrew % (Auto) 6.0 % (0.0-7.3) 06/11/21 01:19 Eos % (Auto) 0.2 % (0.0-4.3) 06/11/21 01:19 Baso % (Auto) 0.2 % (0.0-1.8) 06/11/21 01:19 Lymph # (Auto) 1.4 K/mm3 (1.2-5.4) 06/11/21 01:19 Andrew # (Auto) 0.4 K/mm3 (0.0-0.8) 06/11/21 01:19 Eos # (Auto) 0.0 K/mm3 (0.0-0.4) 06/11/21 01:19 Baso # (Auto) 0.0 K/mm3 (0.0-0.1) 01/09/22 01:19 Add Manual Diff Complete 06/15/21 13:44 Total Counted 100 06/15/21 13:44 Seg Neutrophils % 73.3 % (40.0-70.0) H 06/11/21 01:19 Seg Neuts % (Manual) 74.0 % (40.0-70.0) H 06/15/21 13:44 Band Neutrophils % 0 % 06/15/21 13:44 Lymphocytes % (Manual) 22.0 % (13.4-35.0) 06/15/21 13:44 Reactive Lymphs % (Man) 0 % 06/15/21 13:44 Monocytes % (Manual) 4.0 % (0.0-7.3) 06/15/21 13:44 Metamyelocytes % 0 % 06/15/21 13:44 Myelocytes % 0 % 06/15/21 13:44 Promyelocytes % 0 % 06/15/21 13:44 Blast Cells % 0 % 06/15/21 13:44 Nucleated RBC % Not Reportable 06/15/21 13:44 Seg Neutrophils # 5.2 K/mm3 (1.8-7.7) 06/11/21 01:19 Seg Neutrophils # Man 4.5 K/mm3 (1.8-7.7) 06/15/21 13:44 Band Neutrophils # 0.0 K/mm3 06/15/21 13:44 Lymphocytes # (Manual) 1.3 K/mm3 (1.2-5.4) 06/15/21 13:44 Abs React Lymphs (Man) 0.0 K/mm3 06/15/21 13:44 Monocytes # (Manual) 0.2 K/mm3 (0.0-0.8) 06/15/21 13:44 Eosinophils # (Manual) 0.0 K/mm3 (0.0-0.4) 06/15/21 13:44 Basophils # (Manual) 0.0 K/mm3 (0.0-0.1) 06/15/21 13:44 Metamyelocytes # 0.0 K/mm3 06/15/21 13:44 Myelocytes # 0.0 K/mm3 06/15/21 13:44 Promyelocytes # 0.0 K/mm3 06/15/21 13:44 Blast Cells # 0.0 K/mm3 06/15/21 13:44 WBC Morphology Not Reportable 06/15/21 13:44 Hypersegmented Neuts Not Reportable 06/15/21 13:44 Hyposegmented Neuts Not Reportable 06/15/21 13:44 Hypogranular Neuts Not Reportable 06/15/21 13:44 Smudge Cells Not Reportable 06/15/21 13:44 Toxic Granulation Not Reportable 06/15/21 13:44 Toxic Vacuolation Few 06/15/21 13:44 Dohle Bodies Not Reportable 06/15/21 13:44 Pelger-Huet Anomaly Not Reportable 06/15/21 13:44 Umm Rods Not Reportable 06/15/21 13:44 Platelet Estimate Consistent w auto 06/15/21 13:44 Clumped Platelets Not Reportable 06/15/21 13:44 Plt Clumps, EDTA Not Reportable 06/15/21 13:44 Large Platelets Not Reportable 06/15/21 13:44 Giant Platelets Not Reportable 06/15/21 13:44 Platelet Satelliting Not Reportable 06/15/21 13:44 Plt Morphology Comment Not Reportable 06/15/21 13:44 RBC Morphology Not Reportable 06/15/21 13:44 Dimorphic RBCs Not Reportable 06/15/21 13:44 Polychromasia Not Reportable 06/15/21 13:44 Hypochromasia Not Reportable 06/15/21 13:44 Poikilocytosis Not Reportable 06/15/21 13:44 Anisocytosis Not Reportable 06/15/21 13:44 Microcytosis Not Reportable 06/15/21 13:44 Macrocytosis 1+ 06/15/21 13:44 Spherocytes Not Reportable 06/15/21 13:44 Pappenheimer Bodies Not Reportable 06/15/21 13:44 Sickle Cells Not Reportable 06/15/21 13:44 Target Cells Not Reportable 06/15/21 13:44 Tear Drop Cells Not Reportable 06/15/21 13:44 Ovalocytes Not Reportable 06/15/21 13:44 Helmet Cells Not Reportable 06/15/21 13:44 [place] Bodies Not Reportable 06/15/21 13:44 [place] Rings Not Reportable 06/15/21 13:44 Flavia Cells Not Reportable 06/15/21 13:44 Bite Cells Not Reportable 06/15/21 13:44 Crenated Cell Not Reportable 06/15/21 13:44 Elliptocytes Not Reportable 06/15/21 13:44 Acanthocytes (Spur) Not Reportable 06/15/21 13:44 Rouleaux Not Reportable 06/15/21 13:44 Hemoglobin C Crystals Not Reportable 06/15/21 13:44 Schistocytes Not Reportable 06/15/21 13:44 Malaria parasites Not Reportable 06/15/21 13:44 Asif Bodies Not Reportable 06/15/21 13:44 Hem Pathologist Commnt No 06/15/21 13:44 PT 14.3 Sec. (12.2-14.9) 06/10/21 12:42 INR 1.00 (0.87-1.13) 06/10/21 12:42 APTT 36.7 Sec. (24.2-36.6) H 06/10/21 12:42 Sodium 133 mmol/L (137-145) L 06/15/21 13:44 Potassium 3.6 mmol/L (3.6-5.0) 06/15/21 13:44 Chloride 101.0 mmol/L (98-107) 06/15/21 13:44 Carbon Dioxide 18 mmol/L (22-30) L 06/15/21 13:44 Anion Gap 18 mmol/L 06/15/21 13:44 BUN 20 mg/dL (7-17) H 06/15/21 13:44 Creatinine 2.4 mg/dL (0.6-1.2) H 06/15/21 13:44 Estimated GFR 25 ml/min 06/15/21 13:44 BUN/Creatinine Ratio 8 % 06/15/21 13:44 Glucose 110 mg/dL (65-100) H 06/15/21 13:44 Hemoglobin A1c 4.2 % (4-6) 06/11/21 01:19 Calcium 8.2 mg/dL (8.4-10.2) L 06/15/21 13:44 Phosphorus 2.80 mg/dL (2.5-4.5) D 06/12/21 05:38 Magnesium 1.90 mg/dL (1.7-2.3) 06/12/21 05:38 Total Bilirubin 0.30 mg/dL (0.1-1.2) 06/15/21 13:44 Direct Bilirubin < 0.2 mg/dL (0-0.2) 06/10/21 15:12 Indirect Bilirubin 0.3 mg/dL 06/10/21 15:12 AST 20 units/L (5-40) 06/15/21 13:44 ALT 9 units/L (7-56) 06/15/21 13:44 Alkaline Phosphatase 148 units/L (35-129) H 06/15/21 13:44 Ammonia 32.0 umol/L (25-60) 06/11/21 01:19 Total Protein 5.8 g/dL (6.3-8.2) L 06/15/21 13:44 Albumin 2.6 g/dL (3.9-5) L 06/15/21 13:44 Albumin/Globulin Ratio 0.8 % 06/15/21 13:44 Amylase 94 units/L (27-131) 06/11/21 01:19 Lipase 24 units/L (13-60) 06/10/21 12:42 Vitamin B12 719.8 pg/mL (211-911) 06/12/21 14:50 Folate 12.22 ng/mL (7.3-26.0) 06/12/21 14:50 Plasma/Serum Alcohol 0.17 % (0-0.07) H 06/10/21 14:15 Gallagher/IV: Voiding Method Toilet Active Medications - Current Medications Current Medications: Generic Name Dose Route Start Last Admin Trade Name Freq PRN Reason Stop Dose Admin Acetaminophen 650 mg 06/11/21 00:24 06/13/21 21:05 Acetaminophen 325 Mg Tab PO 650 mg Q4H PRN Administration Pain MILD(1-3)/Fever >100.5/MOSCOSO Famotidine 10 mg 06/12/21 10:00 06/15/21 09:49 Famotidine 10 Mg Tab PO 10 mg BID JUAN DAVID Administration Heparin Sodium (Porcine) 5,000 unit 06/11/21 00:30 06/15/21 09:49 Heparin 5,000 Unit/1 Ml Vial SUB-Q 5,000 unit Q12HR JUAN DAVID Administration Hydralazine HCl 10 mg 06/15/21 04:14 06/15/21 04:29 Hydralazine 20 Mg/1 Ml Inj IV 10 mg Q6H PRN Administration Hypotension Hydromorphone HCl 0.5 mg 06/11/21 00:24 06/15/21 04:35 Hydromorphone 1 Mg/1 Ml Inj IV 0.5 mg Q3H PRN Administration Pain , Severe (7-10) Lorazepam 2 mg 06/10/21 15:03 06/13/21 09:13 Lorazepam 2 Mg/Ml Vial IV 2 mg Q1HR PRN Administration [facility] 8-15 Lorazepam 2 mg 06/13/21 15:32 06/15/21 07:58 Lorazepam 2 Mg Tab PO 2 mg Q1HR PRN Administration Agitation Metoclopramide HCl 5 mg 06/11/21 00:24 Metoclopramide 10 Mg/2 Ml Inj IV Q6H PRN Nausea And Vomiting Metoprolol Tartrate 25 mg 06/11/21 14:00 06/15/21 09:49 Metoprolol Tartrate 25 Mg Tab PO 25 mg BID JUAN DAVID Administration Ondansetron HCl 4 mg 06/11/21 00:24 06/11/21 03:29 Ondansetron 4 Mg/2 Ml Inj IV 4 mg Q8H PRN Administration Nausea And Vomiting Oxycodone/Acetaminophen 1 tab 06/11/21 00:24 06/15/21 13:30 Oxycodone /Acetaminophen 5-325mg Tab PO 1 tab Q6H PRN Administration Pain, Moderate (4-6) Sertraline HCl 25 mg 06/15/21 12:00 06/15/21 13:30 Sertraline 25 Mg Tab PO 25 mg QDAY JUAN DAVID Administration Sodium Chloride 10 ml 06/11/21 10:00 06/15/21 04:30 Sodium Chloride 0.9% 10 Ml Flush Syringe IV 10 ml BID JUAN DAVID Administration Sodium Chloride 10 ml 06/11/21 00:24 Sodium Chloride 0.9% 10 Ml Flush Syringe IV PRN PRN LINE FLUSH Thiamine HCl 100 mg 06/13/21 10:00 06/15/21 09:49 Thiamine 100 Mg Tab PO 100 mg QDAY JUAN DAVID Administration Nutrition/Malnutrition Assess - Dietary Evaluation Nutrition/Malnutrition Findings: Nutrition Notes Start: 06/11/21 14:30 Freq: Status: Active Protocol: Document 06/14/21 17:23 MARLO (Rec: 06/14/21 17:32 MARLO [id number]) Nutrition Notes Initial or Follow up Brief Note Current Diet Regular Diet (since B 06/11). Height 5 ft 4 in Weight 58.5 kg Riley Body Weight (kg) 54.54 BMI 22.1 Weight change and time frame No body weight change reported . Weight Status Appropriate Subjective/Other Information RD consult for routine F/U on dietary eveluation. Dietary Supplements d/c. PO intake of meals has been Good (100%), according to ADL notes. Percent of energy/protein needs met: Prescribed Regular Diet provides for energy/protein needs (2,289 Kcal/89 g) during LOS. Current % PO Good (75-100%) Minimum of two criteria No #1 Nutrition Diagnosis Inadequate oral intake Comments: PO intake of meals has been Good (100%), according to ADL notes. Diagnosis Progress(for reassessment Resolved documentation) Nutrition Intervention Change Diet Order: Continue Regular Diet. Add Supplement/Snack (indicate name/kcal d/c. /protein ) Goal #1 Maintain body weight within +/ -3% of admission body weight during LOS. Revisit per MD consult or patient Sign Off request: Additional Comments Continue monitoring food tolerance, %PO intake of meals , and BM.
[2021-06-16] MEDS: oxyCODONE /ACETAMINOPHEN 5-325MG TAB PO PRN ×3 (00:14→16:20)
[2021-06-16] MEDS ORDERED: SODIUM CHLORIDE 0.9% 500 ML 500 ML IV ONE (07:00)
[2021-06-16] MEDS: METOPROLOL TARTRATE 25 MG TAB PO SCH (09:53)
[2021-06-16] MEDS: HEPARIN 5,000 UNIT/1 ML VIAL SUB-Q SCH (09:53)
[2021-06-16] MEDS: FAMOTIDINE 10 MG TAB PO SCH (09:54)
[2021-06-16] MEDS: THIAMINE 100 MG TAB PO SCH (09:54)
[2021-06-16] MEDS: SERTRALINE 25 MG TAB PO SCH (09:55)
[2021-06-16] MEDS ORDERED: PE/MO/PET,WH 10 APPLIC/28 GM TUBE PR PRN (12:00)
[2021-06-16] MEDS ORDERED: SODIUM BICARBONATE 650 MG TAB PO SCH (13:00)
[2021-06-16 14:02] LABS: Hematocrit 23.2 % (30.3-42.9); Hemoglobin 7.6 gm/dl (10.1-14.3)
[2021-06-16 17:11] VITALS: BP 169/92
--- NOTE | 2021-06-16 18:32 | Discharge Summary ---
Providers - Providers Date of Admission: 06/12/21 11:00 Attending physician: RICH PHILLIPS MD 06/11/21 06:19 Consult to Dietitian/Nutrition [CONS] Routine Physician Instructions: Reason For Exam: poor appetite Reason for Consult: Poor oral intake 06/11/21 09:27 Physical Therapy Evaluation and Treat [CONS] Routine Comment: Reason For Exam: FALL, ATAXIC GAIT 06/11/21 13:15 Consult to Physician [CONS] Routine Comment: Consulting Provider: MEL ROLDAN Physician Instructions: Reason For Exam: NELLY 06/11/21 13:20 Consult to Physician [CONS] Routine Comment: Consulting Provider: CHRIS DUMONT Physician Instructions: Reason For Exam: Depression 06/11/21 15:39 Midline [Consult to PICC Line RN] [CONS] Urgent Reason For Exam: medication administration for NELLY Type Line:: Midline Primary care physician: PIPE LINE WALKER Hospitalization Condition: Stable Disposition: 01 HOME / SELF CARE / HOMELESS Exam - Constitutional Vitals: Temp Pulse Resp BP Pulse Ox 96.2 F L 73 22 169/92 100 06/16/21 16:00 06/16/21 16:00 06/16/21 16:20 06/16/21 16:00 06/16/21 16:00 General appearance: Present: no acute distress - EENT Eyes: Present: PERRL, EOM intact ENT: hearing intact, clear oral mucosa - Neck Neck: Present: supple - Respiratory Respiratory effort: normal Respiratory: bilateral: CTA - Cardiovascular Rhythm: regular - Extremities Extremities: No edema - Abdominal General gastrointestinal: Present: soft, non-tender, normal bowel sounds - Psychiatric Psychiatric: appropriate mood/affect, cooperative - Neurologic Neurologic: moves all extremities, other (Alert and oriented, normal speech. Ambulating. No tremulousness/shakes.) Plan Diet: renal Additional Instructions: Do not drink alcohol of any form. Do not take Advil, Motrin, Aleve type pain medications to protect your kidneys. you have a stage III chronic kidney disease. Follow up with: MARIETTA DENG MD [Primary Care Provider] - 3-5 Days LAM DELGADO MD [Staff Physician] - 7 Days Prescriptions: Ferrous Sulfate [Ferrous Sulfate 324 MG] 324 mg PO DAILY #30 Metoprolol [Lopressor] 25 mg PO BID #60 tablet Multivitamin [Multiple Vitamins] 1 each PO DAILY #30 Multivitamin 1 each PO DAILY #30 Thiamine [Vitamin B-1] 100 mg PO QDAY #30 tablet Sertraline [Zoloft] 25 mg PO QDAY 30 Days #30 tab
== END 2021-06-16 19:57 | disposition home or self-care (01) | DRG 91 ==
LOC: ED 08:34 → 4A 17:26 → OBSVTOIN 06-12 11:00
PROVIDERS: ADMIT Internal Medicine; ATTEND Internal Medicine
DX: G92.8 Other toxic encephalopathy (principal); N17.0 Acute kidney failure with tubular necrosis; S72.002A Fracture of unspecified part of neck of left femur, initial encounter for closed fracture; K29.01 Acute gastritis with bleeding; E87.6 Hypokalemia; F10.231 Alcohol dependence with withdrawal delirium; E83.39 Other disorders of phosphorus metabolism; E83.42 Hypomagnesemia; I10 Essential (primary) hypertension; D64.9 Anemia, unspecified; Y90.9 Presence of alcohol in blood, level not specified; W18.39XA Other fall on same level, initial encounter; Y93.89 Activity, other specified; Y92.89 Other specified places as the place of occurrence of the external cause; Y99.8 Other external cause status
CPT/HCPCS: 36415; 71046; 72131; 74176; 76770; 80048; 80053; 80076; 80320; 82140; 82150; 82271; 82607; 82747; 83036; 83690; 83735; 84100; 84132; 85007; 85014; 85018; 85025; 85027; 85610; 85730; 86850; 86900; 86901; 86920; 93005; G0378; J3490; J7510; Q0162; C9113; G0480; J0360; J1170; J1200; J1644; J2060; J2405; J2765; J3411; J3475; J3480; J7030; J7040